=== PATIENT | female | born 1965 | race Caucasian/White ===

== ENCOUNTER 2022-09-02 12:21 | Inpatient (IN) | payer MEDICAID, OTHER ==
[2022-09-02 17:17] LABS: Basophils % (A) 0 %; Eosinophils # (A) 0.1 k/uL (0-0.7); Eosinophils % (A) 2 %; HCT 40.6 % (34.0-46.0); HGB 13.7 gm/dL (11.4-16.0); Lymphocytes # (A) 1.5 k/uL (1.0-4.8); Lymphocytes % (A) 27 %; MCH 31.2 pg (25.0-35.0); MCHC 33.8 g/dL (31.0-37.0); MCV 92.1 fL (80.0-100.0); Mean Platelet Volume 6.7; Monocytes # (A) 0.4 k/uL (0-1.0); Monocytes % (A) 6 %; Neutrophils # (A) 3.4 k/uL (1.3-7.7); Neutrophils % (A) 63 %; Platelet Count 217 k/uL (150-450); RDW 12.5 % (11.5-15.5); WBC 5.5 k/uL (3.8-10.6)
[2022-09-02 17:41] LABS: ALT 19 U/L (4-34); AST 33 U/L (14-36); African American GFR (CKD) >90 (>60 ml/min/1.73 sqM); Albumin 4.1 g/dL (3.5-5.0); Alkaline Phosphatase 38 U/L (38-126); Amylase 91 U/L (30-110); Anion Gap 10 mmol/L; Blood Urea Nitrogen 10 mg/dL (7-17); C Reactive Protein <0.5 mg/dL (<1.0); Calcium 9.1 mg/dL (8.4-10.2); Carbon Dioxide 22 mmol/L (22-30); Chloride 108 mmol/L (98-107); Lipase 116 U/L (23-300); Non-African American GFR(CKD) >90 (>60 ml/min/1.73 sqM); Potassium 4.1 mmol/L (3.5-5.1); Sodium 140 mmol/L (137-145); Total Bilirubin 0.5 mg/dL (0.2-1.3); Total Protein 6.7 g/dL (6.3-8.2)
[2022-09-02 17:54] LABS: Glucose 86 mg/dL (74-99)
[2022-09-02 17:58] LABS: Appearance,Urine Clear (Clear); Bilirubin,Urine Negative (Negative); Blood,Urine Negative (Negative); Color,Urine Yellow; Glucose,Urine (UA) Negative (Negative); Ketones,Urine Negative (Negative); Leukocyte Esterase,Urine Negative (Negative); Nitrite,Urine Negative (Negative); PH, Urine 6.5 (5.0-8.0); Protein,Urine Negative (Negative); Specific Gravity,Urine 1.017 (1.001-1.035); Urobilinogen,Urine <2.0 mg/dL (<2.0)
[2022-09-02 18:09] LABS: Amphetamine Screen,Urine Not Detected (NotDetected); Barbiturate Screen,Urine Not Detected (NotDetected); Benzodiazepines Screen,Urine Detected (NotDetected); Cocaine Screen,Urine Not Detected (NotDetected); Methadone Screen, Urine Not Detected (NotDetected); Opiate Screen,Urine Not Detected (NotDetected); Oxycodone Screen, Urine Not Detected (NotDetected); Phencyclidine Screen,Urine Not Detected (NotDetected); Tricyclic Antidepressant,Urine Not Detected (NotDetected); Urn Cannabinoid Scrn Detected (NotDetected)
[2022-09-02 19:13] LABS: T4, Free (Free Thyroxine) 1.29 ng/dL (0.78-2.19)
[2022-09-02] MEDS ORDERED: diphenhydrAMINE 50 MG/ML 1 ML VIAL IM PRN (22:12)
[2022-09-02] MEDS ORDERED: LORazepam 2 MG/ML INJ IM PRN ×2 (22:14→23:36)
--- NOTE | 2022-09-02 22:42 | ED ---
General Adult HPI - General Chief complaint: Psychiatric Symptoms Stated complaint: Fever, Mental Health Time Seen by Provider: 09/02/22 15:03 Source: patient, RN notes reviewed Mode of arrival: ambulatory Limitations: no limitations - History of Present Illness Initial comments: 57-year-old female presents to the emergency department with chief complaint of Zoloft withdrawal. She states that she was on Zoloft for around 2 months and abruptly stopped it 2 weeks ago because she felt that it was causing her to be forgetful. Patient reports that she has been more agitated recently. She reports frequent outbursts that she has not experienced before. She also reports that she has been sleeping only 1-1/2-3 hours a night. She states that when she is feeling this way she has to take a Xanax which improves her symptoms. Denies chest pain, shortness of breath, urinary frequency, dysuria. Denies SI, HI, or hallucinations. States that she was hospitalized in the past for her mental health. - Related Data Home Medications Medication Instructions Recorded Confirmed ALPRAZolam [Xanax] 1 mg PO TID PRN 09/02/22 09/02/22 Ascorbic Acid [Vitamin C] 1,000 mg PO DAILY 09/02/22 09/02/22 Biotin [Pcgc-Qukt-Rbeyv] 10,000 mcg PO DAILY 09/02/22 09/02/22 Calcium Carbonate [Calcium] 600 mg PO DAILY 09/02/22 09/02/22 Latanoprost Ophth [Xalatan 0.005%] 1 drop BOTH EYES HS 09/02/22 09/02/22 Loratadine [Claritin] 10 mg PO DAILY 09/02/22 09/02/22 Multivitamins, Thera [Multivitamin 1 tab PO DAILY 09/02/22 09/02/22 (formulary)] Omeprazole [PriLOSEC] 20 mg PO AC-BRKFST 09/02/22 09/02/22 Allergies Allergy/AdvReac Type Severity Reaction Status Date / Time quetiapine [From Seroquel] Allergy Hallucinati Verified 09/02/22 17:32 ons sulfamethoxazole Allergy Rash/Hives Verified 09/02/22 17:32 [From Bactrim] trimethoprim [From Bactrim] Allergy Rash/Hives Verified 09/02/22 17:32 Review of Systems ROS Statement: Those systems with pertinent positive or pertinent negative responses have been documented in the HPI. ROS Other: All systems not noted in ROS Statement are negative. Past Medical History Past Medical History: No Reported History History of Any Multi-Drug Resistant Organisms: None Reported Past Surgical History: No Surgical Hx Reported Past Psychological History: PTSD Smoking Status: Vaper Past Alcohol Use History: Occasional Past Drug Use History: Marijuana, Prescription Drug Abuse General Exam Limitations: no limitations General appearance: alert, in no apparent distress, anxious Head exam: Present: atraumatic, normocephalic, normal inspection Eye exam: Present: normal appearance, PERRL, EOMI. Absent: scleral icterus, conjunctival injection, periorbital swelling ENT exam: Present: normal exam, mucous membranes moist Neck exam: Present: normal inspection, full ROM. Absent: tenderness, meningismus, lymphadenopathy Respiratory exam: Present: normal lung sounds bilaterally. Absent: respiratory distress, wheezes, rales, rhonchi, stridor Cardiovascular Exam: Present: regular rate, normal rhythm, normal heart sounds. Absent: systolic murmur, diastolic murmur, rubs, gallop, clicks GI/Abdominal exam: Present: soft, normal bowel sounds. Absent: distended, tenderness, guarding, rebound, rigid Extremities exam: Present: normal inspection, full ROM, normal capillary refill. Absent: tenderness, pedal edema, joint swelling, calf tenderness Back exam: Present: normal inspection Neurological exam: Present: alert, oriented X3, CN II-XII intact Psychiatric exam: Present: agitated, anxious, manic Skin exam: Present: warm, dry, intact, normal color. Absent: rash Course Vital Signs 09/02/22 09/02/22 09/02/22 12:23 15:42 18:43 Temperature 97.9 F 98.4 F 97.9 F Pulse Rate 98 Respiratory 20 Rate Blood Pressure 127/80 O2 Sat by Pulse 99 Oximetry 09/02/22 09/02/22 19:31 23:27 Temperature 97.6 F 98.1 F Pulse Rate 71 76 Respiratory 20 16 Rate Blood Pressure 123/64 136/68 O2 Sat by Pulse 98 99 Oximetry Medical Decision Making - Medical Decision Making Was pt. sent in by a medical professional or institution (, PA, GUARD LIEUTENANT, urgent care, hospital, or senior care...) When possible be specific @ -[No] Did you speak to anyone other than the patient for history (EMS, parent, family, police, friend...)? What history was obtained from this source @ -[No] Did you review nursing and triage notes (agree or disagree)? Why? @ -[I reviewed and agree with nursing and triage notes] Were old charts reviewed (outside hosp., previous admission, EMS record, old EKG, old radiological studies, urgent care reports/EKG's, senior care records)? Report findings @ -[No old charts were reviewed] Differential Diagnosis (chest pain, altered mental status, abdominal pain women, abdominal pain men, vaginal bleeding, weakness, fever, dyspnea, syncope, headache, dizziness, GI bleed, back pain, seizure, CVA, palpatations, mental health, musculoskeletal)? @ -[Differential Mental Health Depression, anxiety, bipolar, psychosis, schizophrenia, borderline personality, situational depression, adjustment disorder, behavioral disorder, brain tumor, malingering, substance abuse, encephalopathy, medication reaction, dementia, hypothyroidism, degenerative neurologic disorder, lupus.... This is not meant to be all-inclusive list] EKG interpreted by me (3pts min.). @ -[none] X-rays interpreted by me (1pt min.). @ -[None done] CT interpreted by me (1pt min.). @ -[None done] U/S interpreted by me (1pt. min.). @ -[None done] What testing was considered but not performed or refused? (CT, X-rays, U/S, labs)? Why? @ -[None] What meds were considered but not given or refused? Why? @ -[None] Did you discuss the management of the patient with other professionals (professionals i.e. , PA, GUARD LIEUTENANT, lab, RT, psych nurse, social sciences chair, crystal finisher, teacher, public health service officer, shoe caser)? Give summary @ -[No] Was smoking cessation discussed for >3mins.? @ -[No] Was critical care preformed (if so, how long)? @ -[No] Were there social determinants of health that impacted care today? How? (Homelessness, low income, unemployed, alcoholism, drug addiction, transportation, low edu. Level, literacy, decrease access to med. care, shelter, rehab)? @ -[No] Was there de-escalation of care discussed even if they declined (Discuss DNR or withdrawal of care, Hospice)? DNR status @ -[No] What co-morbidities impacted this encounter? (DM, HTN, Smoking, COPD, CAD, Cancer, CVA, ARF, Chemo, Hep., AIDS, mental health diagnosis, sleep apnea, morbid obesity)? @ -[None] Was patient admitted / discharged? Hospital course, mention meds given and route, prescriptions, significant lab abnormalities, going to OR and other pertinent info. @ -[Psych admit. Patient presented to the emergency department for increased agitation, hyperactivity, insomnia. Patient denies SI, HI. Patient has been hospitalized for mental health in the past. Laboratory studies obtained including CBC, CMP, UA which were within normal limits. Drug Screen positive for marijuana and benzos. Patient states that she takes Xanax. Patient is hyperactive and hyperverbal and easily becomes agitated. Patient was medically cleared for evaluation by EPS. EPS recommended inpatient psychiatric evaluation and treatment. Patient was petitioned by EPS as evidently she may be a danger to herself at home. ] Undiagnosed new problem with uncertain prognosis? @ -[No] Drug Therapy requiring intensive monitoring for toxicity (Heparin, Nitro, Insulin, Cardizem)? @ -[No] Were any procedures done? @ -[No] Diagnosis/symptom? @ -[Anxiety] Acute, or Chronic, or Acute on Chronic? @ -[acute] Uncomplicated (without systemic symptoms) or Complicated (systemic symptoms)? @ -[Uncomplicated] Side effects of treatment? @ -[No] Exacerbation, Progression, or Severe Exacerbation? @ -[No] Poses a threat to life or bodily function? How? (Chest pain, USA, GA, pneumonia, PE, COPD, DKA, ARF, appy, cholecystitis, CVA, Diverticulitis, Homicidal, Suicidal, threat to staff... and all critical care pts) @ -[No] - Lab Data Result diagrams: 09/02/22 16:58 09/02/22 16:58 Lab Results 09/02/22 09/02/22 09/02/22 Range/Units 15:50 15:58 16:58 WBC 5.5 (3.8-10.6) k/uL RBC 4.40 (3.80-5.40) m/uL Hgb 13.7 (11.4-16.0) gm/dL Hct 40.6 (34.0-46.0) % MCV 92.1 (80.0-100.0) fL MCH 31.2 (25.0-35.0) pg MCHC 33.8 (31.0-37.0) g/dL RDW 12.5 (11.5-15.5) % Plt Count 217 (150-450) k/uL MPV 6.7 Neutrophils % 63 % Lymphocytes % 27 % Monocytes % 6 % Eosinophils % 2 % Basophils % 0 % Neutrophils # 3.4 (1.3-7.7) k/uL Lymphocytes # 1.5 (1.0-4.8) k/uL Monocytes # 0.4 (0-1.0) k/uL Eosinophils # 0.1 (0-0.7) k/uL Basophils # 0.0 (0-0.2) k/uL Sodium (137-145) mmol/L Potassium (3.5-5.1) mmol/L Chloride (98-107) mmol/L Carbon Dioxide (22-30) mmol/L Anion Gap mmol/L BUN (7-17) mg/dL Creatinine (0.52-1.04) mg/dL Est GFR (CKD-EPI)AfAm (>60 ml/min/1.73 sqM) Est GFR (CKD-EPI)NonAf (>60 ml/min/1.73 sqM) Glucose (74-99) mg/dL Estimated Ave Glu mg/dL mg/dL Hemoglobin A1c (<=6.0) % Calcium (8.4-10.2) mg/dL Total Bilirubin (0.2-1.3) mg/dL AST (14-36) U/L ALT (4-34) U/L Alkaline Phosphatase (38-126) U/L C-Reactive Protein (<1.0) mg/dL Total Protein (6.3-8.2) g/dL Albumin (3.5-5.0) g/dL Triglycerides (0.00-149.00) mg/dL Cholesterol (0.00-200.00) mg/dL LDL Cholesterol, Calc (0.0-131.0) mg/dL VLDL Cholesterol, Calc (5.00-40.00) mg/dL HDL Cholesterol (40.00-60.00) mg/dL Cholesterol/HDL Ratio Ratio Amylase (30-110) U/L Lipase (23-300) U/L TSH (0.465-4.680) mIU/L Free T4 (0.78-2.19) ng/dL Urine Color Yellow Urine Appearance Clear (Clear) Urine pH 6.5 (5.0-8.0) Ur Specific [place] 1.017 (1.001-1.035) Urine Protein Negative (Negative) Urine Glucose (UA) Negative (Negative) Urine Ketones Negative (Negative) Urine Blood Negative (Negative) Urine Nitrite Negative (Negative) Urine Bilirubin Negative (Negative) Urine Urobilinogen <2.0 (<2.0) mg/dL Ur Leukocyte Esterase Negative (Negative) Urine Opiates Screen Not Detected (NotDetected) Ur Oxycodone Screen Not Detected (NotDetected) Urine Methadone Screen Not Detected (NotDetected) Ur Propoxyphene Screen Not Detected (NotDetected) Ur Barbiturates Screen Not Detected (NotDetected) U Tricyclic Antidepress Not Detected (NotDetected) Ur Phencyclidine Scrn Not Detected (NotDetected) Ur Amphetamines Screen Not Detected (NotDetected) U Methamphetamines Scrn Not Detected (NotDetected) U Benzodiazepines Scrn Detected H (NotDetected) Urine Cocaine Screen Not Detected (NotDetected) U Marijuana (THC) Screen Detected H (NotDetected) Coronavirus (PCR) (Not Detectd) 09/02/22 09/02/22 09/02/22 Range/Units 16:58 16:58 16:58 WBC (3.8-10.6) k/uL RBC (3.80-5.40) m/uL Hgb (11.4-16.0) gm/dL Hct (34.0-46.0) % MCV (80.0-100.0) fL MCH (25.0-35.0) pg MCHC (31.0-37.0) g/dL RDW (11.5-15.5) % Plt Count (150-450) k/uL MPV Neutrophils % % Lymphocytes % % Monocytes % % Eosinophils % % Basophils % % Neutrophils # (1.3-7.7) k/uL Lymphocytes # (1.0-4.8) k/uL Monocytes # (0-1.0) k/uL Eosinophils # (0-0.7) k/uL Basophils # (0-0.2) k/uL Sodium 140 (137-145) mmol/L Potassium 4.1 (3.5-5.1) mmol/L Chloride 108 H (98-107) mmol/L Carbon Dioxide 22 (22-30) mmol/L Anion Gap 10 mmol/L BUN 10 (7-17) mg/dL Creatinine 0.71 (0.52-1.04) mg/dL Est GFR (CKD-EPI)AfAm >90 (>60 ml/min/1.73 sqM) Est GFR (CKD-EPI)NonAf >90 (>60 ml/min/1.73 sqM) Glucose 86 (74-99) mg/dL Estimated Ave Glu mg/dL 105 mg/dL Hemoglobin A1c 5.3 (<=6.0) % Calcium 9.1 (8.4-10.2) mg/dL Total Bilirubin 0.5 (0.2-1.3) mg/dL AST 33 (14-36) U/L ALT 19 (4-34) U/L Alkaline Phosphatase 38 (38-126) U/L C-Reactive Protein <0.5 (<1.0) mg/dL Total Protein 6.7 (6.3-8.2) g/dL Albumin 4.1 (3.5-5.0) g/dL Triglycerides 113.00 (0.00-149.00) mg/dL Cholesterol 183.00 (0.00-200.00) mg/dL LDL Cholesterol, Calc 111.3 (0.0-131.0) mg/dL VLDL Cholesterol, Calc 22.60 (5.00-40.00) mg/dL HDL Cholesterol 49.10 (40.00-60.00) mg/dL Cholesterol/HDL Ratio 3.73 Ratio Amylase 91 (30-110) U/L Lipase 116 (23-300) U/L TSH 0.327 L (0.465-4.680) mIU/L Free T4 1.29 (0.78-2.19) ng/dL Urine Color Urine Appearance (Clear) Urine pH (5.0-8.0) Ur Specific [place] (1.001-1.035) Urine Protein (Negative) Urine Glucose (UA) (Negative) Urine Ketones (Negative) Urine Blood (Negative) Urine Nitrite (Negative) Urine Bilirubin (Negative) Urine Urobilinogen (<2.0) mg/dL Ur Leukocyte Esterase (Negative) Urine Opiates Screen (NotDetected) Ur Oxycodone Screen (NotDetected) Urine Methadone Screen (NotDetected) Ur Propoxyphene Screen (NotDetected) Ur Barbiturates Screen (NotDetected) U Tricyclic Antidepress (NotDetected) Ur Phencyclidine Scrn (NotDetected) Ur Amphetamines Screen (NotDetected) U Methamphetamines Scrn (NotDetected) U Benzodiazepines Scrn (NotDetected) Urine Cocaine Screen (NotDetected) U Marijuana (THC) Screen (NotDetected) Coronavirus (PCR) (Not Detectd) 09/02/22 Range/Units 22:40 WBC (3.8-10.6) k/uL RBC (3.80-5.40) m/uL Hgb (11.4-16.0) gm/dL Hct (34.0-46.0) % MCV (80.0-100.0) fL MCH (25.0-35.0) pg MCHC (31.0-37.0) g/dL RDW (11.5-15.5) % Plt Count (150-450) k/uL MPV Neutrophils % % Lymphocytes % % Monocytes % % Eosinophils % % Basophils % % Neutrophils # (1.3-7.7) k/uL Lymphocytes # (1.0-4.8) k/uL Monocytes # (0-1.0) k/uL Eosinophils # (0-0.7) k/uL Basophils # (0-0.2) k/uL Sodium (137-145) mmol/L Potassium (3.5-5.1) mmol/L Chloride (98-107) mmol/L Carbon Dioxide (22-30) mmol/L Anion Gap mmol/L BUN (7-17) mg/dL Creatinine (0.52-1.04) mg/dL Est GFR (CKD-EPI)AfAm (>60 ml/min/1.73 sqM) Est GFR (CKD-EPI)NonAf (>60 ml/min/1.73 sqM) Glucose (74-99) mg/dL Estimated Ave Glu mg/dL mg/dL Hemoglobin A1c (<=6.0) % Calcium (8.4-10.2) mg/dL Total Bilirubin (0.2-1.3) mg/dL AST (14-36) U/L ALT (4-34) U/L Alkaline Phosphatase (38-126) U/L C-Reactive Protein (<1.0) mg/dL Total Protein (6.3-8.2) g/dL Albumin (3.5-5.0) g/dL Triglycerides (0.00-149.00) mg/dL Cholesterol (0.00-200.00) mg/dL LDL Cholesterol, Calc (0.0-131.0) mg/dL VLDL Cholesterol, Calc (5.00-40.00) mg/dL HDL Cholesterol (40.00-60.00) mg/dL Cholesterol/HDL Ratio Ratio Amylase (30-110) U/L Lipase (23-300) U/L TSH (0.465-4.680) mIU/L Free T4 (0.78-2.19) ng/dL Urine Color Urine Appearance (Clear) Urine pH (5.0-8.0) Ur Specific [place] (1.001-1.035) Urine Protein (Negative) Urine Glucose (UA) (Negative) Urine Ketones (Negative) Urine Blood (Negative) Urine Nitrite (Negative) Urine Bilirubin (Negative) Urine Urobilinogen (<2.0) mg/dL Ur Leukocyte Esterase (Negative) Urine Opiates Screen (NotDetected) Ur Oxycodone Screen (NotDetected) Urine Methadone Screen (NotDetected) Ur Propoxyphene Screen (NotDetected) Ur Barbiturates Screen (NotDetected) U Tricyclic Antidepress (NotDetected) Ur Phencyclidine Scrn (NotDetected) Ur Amphetamines Screen (NotDetected) U Methamphetamines Scrn (NotDetected) U Benzodiazepines Scrn (NotDetected) Urine Cocaine Screen (NotDetected) U Marijuana (THC) Screen (NotDetected) Coronavirus (PCR) Not Detected (Not Detectd) Disposition Clinical Impression: Acute anxiety Disposition: ADMITTED IP TO THIS HOSP Condition: Stable Is patient prescribed a controlled substance at d/c from ED?: No
[2022-09-02] MEDS ORDERED: HALOPERIDOL LACTATE 5 MG/ML 1 ML VIAL IM PRN (23:36)
[2022-09-02] MEDS ORDERED: haloperidoL 5 MG TAB PO PRN (23:36)
[2022-09-02] MEDS ORDERED: ACETAMINOPHEN TAB 325 MG TAB PO PRN (23:36)
[2022-09-02] MEDS ORDERED: MAGNESIUM HYDROXIDE 2,400 MG/30 ML CUP PO PRN (23:36)
[2022-09-02] MEDS: LORazepam 1 MG TAB PO PRN (23:58)
[2022-09-02] MEDS: NICOTINE 14MG/24HR PATCH TRANSDERM SCH (23:58)
[2022-09-03] MEDS: PANTOPRAZOLE 40 MG TABLET PO SCH (06:50)
[2022-09-03] MEDS ORDERED: NON FORMULARY DRUG (Biotin [Hair-Skin-Nails] 10,000 MCG Tab.Chew) PO SCH (09:00)
[2022-09-03] MEDS: LORATADINE 10 MG TAB PO SCH (09:35)
[2022-09-03] MEDS: CALCIUM CARBONATE 500 MG CHEWABLE PO SCH (09:35)
[2022-09-03] MEDS: ASCORBIC ACID 500 MG TAB PO SCH (09:35)
[2022-09-03] MEDS: MULTIVITAMINS, THERA 1 EACH TAB PO SCH (09:35)
[2022-09-03] MEDS: NICOTINE 14MG/24HR PATCH TRANSDERM SCH (09:36)
[2022-09-03] MEDS: LORazepam 1 MG TAB PO PRN ×2 (09:37→17:26)
[2022-09-03] MEDS: MAG HYDROX/AL HYDROX/SIMETH 30 ML CUP PO PRN ×2 (09:38→18:40)
[2022-09-03 12:01] VITALS: BMI 19.1
[2022-09-03] MEDS: NICOTINE GUM (POLACRILEX) 2 MG GUM BUCCAL PRN ×3 (13:30→21:19)
[2022-09-03 17:43] LABS: Chol/HDL Ratio 3.73 Ratio; LDL Cholesterol,Calculated 111.3 mg/dL (0.0-131.0)
--- NOTE | 2022-09-03 18:17 | P.HP ---
Psychiatric H&P - . H&P Date: 09/03/22 History & Physical: Allergies Allergy/AdvReac Type Severity Reaction Status Date / Time quetiapine [From Seroquel] Allergy Hallucinati Verified 09/02/22 17:32 ons sulfamethoxazole Allergy Rash/Hives Verified 09/02/22 17:32 [From Bactrim] trimethoprim [From Bactrim] Allergy Rash/Hives Verified 09/02/22 17:32 Vital Signs Temp 97.5 F L 09/02/22 23:59 Pulse 91 09/03/22 09:42 Resp 20 09/02/22 23:59 BP 120/66 09/03/22 09:42 Pulse Ox 99 09/02/22 23:27 FiO2 Intake & Output 09/02/22 09/03/22 09/03/22 18:59 06:59 18:59 Weight 48.534 kg 47.5 kg 47.5 kg Laboratory Last Values WBC 5.5 k/uL (3.8-10.6) 09/02/22 16:58 RBC 4.40 m/uL (3.80-5.40) 09/02/22 16:58 Hgb 13.7 gm/dL (11.4-16.0) 09/02/22 16:58 Hct 40.6 % (34.0-46.0) 09/02/22 16:58 MCV 92.1 fL (80.0-100.0) 09/02/22 16:58 MCH 31.2 pg (25.0-35.0) 09/02/22 16:58 MCHC 33.8 g/dL (31.0-37.0) 09/02/22 16:58 RDW 12.5 % (11.5-15.5) 09/02/22 16:58 Plt Count 217 k/uL (150-450) 09/02/22 16:58 MPV 6.7 09/02/22 16:58 Neutrophils % 63 % 09/02/22 16:58 Lymphocytes % 27 % 09/02/22 16:58 Monocytes % 6 % 09/02/22 16:58 Eosinophils % 2 % 09/02/22 16:58 Basophils % 0 % 09/02/22 16:58 Neutrophils # 3.4 k/uL (1.3-7.7) 09/02/22 16:58 Lymphocytes # 1.5 k/uL (1.0-4.8) 09/02/22 16:58 Monocytes # 0.4 k/uL (0-1.0) 09/02/22 16:58 Eosinophils # 0.1 k/uL (0-0.7) 09/02/22 16:58 Basophils # 0.0 k/uL (0-0.2) 09/02/22 16:58 Sodium 140 mmol/L (137-145) 09/02/22 16:58 Potassium 4.1 mmol/L (3.5-5.1) 09/02/22 16:58 Chloride 108 mmol/L (98-107) H 09/02/22 16:58 Carbon Dioxide 22 mmol/L (22-30) 09/02/22 16:58 Anion Gap 10 mmol/L 09/02/22 16:58 BUN 10 mg/dL (7-17) 09/02/22 16:58 Creatinine 0.71 mg/dL (0.52-1.04) 09/02/22 16:58 Est GFR (CKD-EPI)AfAm >90 (>60 ml/min/1.73 sqM) 09/02/22 16:58 Est GFR (CKD-EPI)NonAf >90 (>60 ml/min/1.73 sqM) 09/02/22 16:58 Glucose 86 mg/dL (74-99) 09/02/22 16:[address] Glu mg/dL 105 mg/dL 09/02/22 16:58 Hemoglobin A1c 5.3 % (<=6.0) 09/02/22 16:58 Calcium 9.1 mg/dL (8.4-10.2) 09/02/22 16:58 Total Bilirubin 0.5 mg/dL (0.2-1.3) 09/02/22 16:58 AST 33 U/L (14-36) 09/02/22 16:58 ALT 19 U/L (4-34) 09/02/22 16:58 Alkaline Phosphatase 38 U/L (38-126) 09/02/22 16:58 C-Reactive Protein <0.5 mg/dL (<1.0) 09/02/22 16:58 Total Protein 6.7 g/dL (6.3-8.2) 09/02/22 16:58 Albumin 4.1 g/dL (3.5-5.0) 09/02/22 16:58 Amylase 91 U/L (30-110) 09/02/22 16:58 Lipase 116 U/L (23-300) 09/02/22 16:58 TSH 0.327 mIU/L (0.465-4.680) L 09/02/22 16:58 Free T4 1.29 ng/dL (0.78-2.19) 09/02/22 16:58 Urine Color Yellow 09/02/22 15:58 Urine Appearance Clear (Clear) 09/02/22 15:58 Urine pH 6.5 (5.0-8.0) 09/02/22 15:58 Ur Specific [place] 1.017 (1.001-1.035) 09/02/22 15:58 Urine Protein Negative (Negative) 09/02/22 15:58 Urine Glucose (UA) Negative (Negative) 09/02/22 15:58 Urine Ketones Negative (Negative) 09/02/22 15:58 Urine Blood Negative (Negative) 09/02/22 15:58 Urine Nitrite Negative (Negative) 09/02/22 15:58 Urine Bilirubin Negative (Negative) 09/02/22 15:58 Urine Urobilinogen <2.0 mg/dL (<2.0) 09/02/22 15:58 Ur Leukocyte Esterase Negative (Negative) 09/02/22 15:58 Urine Opiates Screen Not Detected (NotDetected) 09/02/22 15:50 Ur Oxycodone Screen Not Detected (NotDetected) 09/02/22 15:50 Urine Methadone Screen Not Detected (NotDetected) 09/02/22 15:50 Ur Propoxyphene Screen Not Detected (NotDetected) 09/02/22 15:50 Ur Barbiturates Screen Not Detected (NotDetected) 09/02/22 15:50 U Tricyclic Antidepress Not Detected (NotDetected) 09/02/22 15:50 Ur Phencyclidine Scrn Not Detected (NotDetected) 09/02/22 15:50 Ur Amphetamines Screen Not Detected (NotDetected) 09/02/22 15:50 U Methamphetamines Scrn Not Detected (NotDetected) 09/02/22 15:50 U Benzodiazepines Scrn Detected (NotDetected) H 09/02/22 15:50 Urine Cocaine Screen Not Detected (NotDetected) 09/02/22 15:50 U Marijuana (THC) Screen Detected (NotDetected) H 09/02/22 15:50 Coronavirus (PCR) Not Detected (Not Detectd) 09/02/22 22:40 09/03/22 13:25 IDENTIFYING DATA: Patient is a 57 yo female, currently lives alone in an apartment, single, 5 kids. HPI: Patient presented to the hospital yesterday and was seen in the ED. patient apparently was hyperverbal, agitated and complainging on "zoloft withdrawal". She was admitted to the [facility] involuntarily and was seen in the hallways and demanded to speak to telegraphic typewriter installer in the office today. she was positive for thc and BZD. she appeared to be rambling, loose associations, hyperverbal bizzare and intrusive during the interview. she states that she was taking zoloft and was not feeling well with it after taking 25 mg. she states that she was having alot of somatic sx and then finally stopped taking it 2 weeks ago and her conditon got worst. she states that she was feeling she had a "brain infection". she was displaying racing thoughts, difficult to redirect. she states that she is not able to keep her house maintained and clean and cant maintain herself care either. she states that her sleep has been poor, appetite is fair. Patient denies any suicidal or homicidal ideations intent or plan. At this time patient denies any auditory or visual hallucinations. she claims that she uses thc regularly and cigarettes aswell. denies any other rec drug use. PAST PSYCHIATRIC HISTORY: Patient states that she has a hx of ptsd, ADHD. [Patient was previously taking zoloft 25mg however has stopped for 2 weeks now.] [Patient claims that she was last psychitrically admitted to the MHU was in 2005.] [Patient denies any psychiatric outpatient follow-up.] [Patient denies any history of suicide attempts in the past.] Past Medical History: No Reported History History of Any Multi-Drug Resistant Organisms: None Reported Past Surgical History: No Surgical Hx Reported Past Psychological History: PTSD Smoking Status: Vaper Past Alcohol Use History: Occasional Past Drug Use History: Marijuana, Prescription Drug Abuse ALLERGIES: as per EMR CHEMICAL DEPENDENCY HISTORY: as per HPI FAMILY PSYCHIATRIC/SUBSTANCE USE HISTORY: states her son has schizoaffective disorder SOCIAL HISTORY: Patient was born and raised in [place], completed high school, did some college. states that she used to work at an [employer] home. she has 5 kids, lives alone in an apartment. single. MENTAL STATUS EXAM: General Appearance: Patient appears to be [thin, older than stated age,] is a lert, [difficult to redirect, intrusive]. Patient appears to have fair] hygiene and grooming. Behavior: Patient is seated without any agitated behavior. intrusive and labile at times. Speech: Patient's speech is rapid and hyperverbal. Mood/Affect: Patient reports their mood is "fine", affect is incongruent and labile Suicidality/Homicidality: Patient denies having any homicidal ideation intent or plan. [Denies any suicidal ideations intent or plan] Perceptions: Patient denies any visual hallucinations [and denies any auditory hallucinations] Though content/process: [There is no evidence of any delusional thought content, tangential, rambling, loose associations.] Memory and concentration: AOX3, grossly intact for the purposes of this session Judgment and insight: [poor STRENGTHS/WEAKNESSES: strength is that patient is [resilient]. Weakness is that patient [has poor judgment and is impulsive] INTELLECT: [average] IMPRESSIONS: Mood disorder unspecified hx of PTSD cannabis use disorder nicotine dependence PLAN: -Patient is admitted under [involuntary] status to MHU for stabilization of psychiatric symptoms and safety. Patient has signed [medication consent] and is placed in patient's chart. [A second certification was completed and along with petition will be filed for court.] -Medications : Will start patient on lithobid 450 mg HS for mood stabilziation. Zyprexa 2.5 mg qhs for insomnia/mood stabilization. trazodone 50 mg qhs prn for insomnia -Ativan [and Haldol] PRN for agitation/aggression [-Patient was counselled on substance abuse and desired to cut back on use] -Patient was informed of the risks, benefits and side effects of the medication and patient verbally consented to taking the medications. Patient signed med consent form and was placed in chart. -Internal Medicine consult to perform medical evaluation and physical. -NRT - [nicotine patch] -SW on board for discharge planning. Encourage patient to participate in groups to work on coping skills. [Will await deferral and court date.] 09/03/22 18:15
[2022-09-03] MEDS ORDERED: OLANZapine 2.5 MG TAB PO SCH (21:00)
[2022-09-03] MEDS: LITHIUM CARBONATE ER 450 MG TABLET.ER PO SCH (21:16)
[2022-09-03] MEDS: LATANOPROST 0.005% OPHTH DROPS 2.5 ML BTL BOTH EYES SCH (21:16)
[2022-09-03] MEDS: traZODone HCL 50 MG TAB PO PRN (21:19)
[2022-09-04] MEDS: LORazepam 1 MG TAB PO PRN ×4 (00:03→21:09)
--- NOTE | 2022-09-04 05:21 | P.MDCNMH ---
History of Present Illness H&P Date: 09/04/22 Chief Complaint: medical evaluation 57 year old female with no significant past medical history patient coming in for evaluation of symptoms , she believes related to zoloft withdrawal. she claims she took it for a while, then stopped it, and her doc recently restarted it 2 months ago , and she feels it causing her blood pressure to run low. it not clear to me if she stopped it for 2 days or for 2 weeks , and she is not clear about the withdrawal symptoms, but claims she is having shakes. she denies any suicidal ideation , denies any other medical concerns admits to vaping nicotine , occasional marijunana denies alcohol review of systems Pertinent positives as noted in HPI. All other systems were reviewed and are negative Constitutional: No acute distress, Eyes: Anicteric sclerae, moist conjunctiva, Pupils equal round reactive to light Lungs: Clear to auscultation Clear to percussion Normal respiratory effort, no accessory muscle use Cardiovascular: Heart regular in rate and rhythm, No murmurs, gallops, or rubs No peripheral edema Abdominal: Soft Nontender, no guarding, rebound or rigidity Abdomen moving with respiration Normoactive bowel sounds Extremities: No digital cyanosis No clubbing Pedal pulses intact and symmetrical Radial pulses intact and symmetrical No calf tenderness Psychiatric: Alert and oriented to person, place and time Neuro Muscles Strength 5/5 in all 4 extremities Sensation to light touch grossly present throughout Cranial nerves II-XII grossly intact Past Medical History Past Medical History: No Reported History Additional Past Medical History / Comment(s): glaucoma, gerd, History of Any Multi-Drug Resistant Organisms: None Reported Past Surgical History: No Surgical Hx Reported Past Anesthesia/Blood Transfusion Reactions: No Reported Reaction Past Psychological History: PTSD Smoking Status: Vaper Past Alcohol Use History: Occasional Past Drug Use History: Marijuana, Prescription Drug Abuse Medications and Allergies Home Medications Medication Instructions Recorded Confirmed Type ALPRAZolam [Xanax] 1 mg PO TID PRN 09/02/22 09/02/22 History Ascorbic Acid [Vitamin C] 1,000 mg PO DAILY 09/02/22 09/02/22 History Biotin [Fdfs-Soco-Srtyh] 10,000 mcg PO DAILY 09/02/22 09/02/22 History Calcium Carbonate [Calcium] 600 mg PO DAILY 09/02/22 09/02/22 History Latanoprost Ophth [Xalatan 0.005%] 1 drop BOTH EYES HS 09/02/22 09/02/22 History Loratadine [Claritin] 10 mg PO DAILY 09/02/22 09/02/22 History Multivitamins, Thera [Multivitamin 1 tab PO DAILY 09/02/22 09/02/22 History (formulary)] Omeprazole [PriLOSEC] 20 mg PO AC-BRKFST 09/02/22 09/02/22 History Allergies Allergy/AdvReac Type Severity Reaction Status Date / Time quetiapine [From Seroquel] Allergy Hallucinati Verified 09/02/22 17:32 ons sulfamethoxazole Allergy Rash/Hives Verified 09/02/22 17:32 [From Bactrim] trimethoprim [From Bactrim] Allergy Rash/Hives Verified 09/02/22 17:32 Physical Exam Vitals: Vital Signs Temp Pulse Pulse Resp BP Pulse Ox 09/04/22 00:38 97.9 F 88 16 95/53 99 09/03/22 09:42 91 120/66 Intake and Output 09/03/22 09/03/22 09/04/22 14:59 22:59 06:59 Other: Weight 47.5 kg Cranial Nerve Examination - Cranial Nerves Cranial Nerve II- Optic: Intact Cranial Nerve III- Oculomotor: Intact Cranial Nerve IV- Trochlear: Intact Cranial Nerve V- Trigeminal: Intact Cranial Nerve - Abducens: Intact Cranial Nerve VII- Facial: Intact Cranial Nerve VIII- Auditory: Intact Cranial Nerve IX- Glossopharyngeal: Intact Cranial Nerve X- Vagus: Intact Cranial Nerve XI- Accessory: Intact Cranial Nerve XII- Hypoglossal: Intact Results CBC & Chem 7: 09/02/22 16:58 09/02/22 16:58 Assessment and Plan Assessment: psychosis follow up with psychiatry ' borderline blood pressure asymptomatic continue to monitor blood work unremarkable TSH low, but free T4 within normal limit s thank you for this consultation
[2022-09-04] MEDS: PANTOPRAZOLE 40 MG TABLET PO SCH (07:04)
[2022-09-04] MEDS: LORATADINE 10 MG TAB PO SCH (09:06)
[2022-09-04] MEDS: CALCIUM CARBONATE 500 MG CHEWABLE PO SCH (09:06)
[2022-09-04] MEDS: NICOTINE 14MG/24HR PATCH TRANSDERM SCH (09:06)
[2022-09-04] MEDS: MULTIVITAMINS, THERA 1 EACH TAB PO SCH (09:06)
[2022-09-04] MEDS: ASCORBIC ACID 500 MG TAB PO SCH (09:06)
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
[2022-09-04] MEDS: NICOTINE GUM (POLACRILEX) 2 MG GUM BUCCAL PRN (15:00)
[2022-09-04] MEDS: MAG HYDROX/AL HYDROX/SIMETH 30 ML CUP PO PRN (20:05)
[2022-09-04] MEDS: LITHIUM CARBONATE ER 450 MG TABLET.ER PO SCH (20:05)
[2022-09-04] MEDS: OLANZapine 5 MG TAB PO SCH (20:05)
[2022-09-04] MEDS: LATANOPROST 0.005% OPHTH DROPS 2.5 ML BTL BOTH EYES SCH (20:07)
[2022-09-05] MEDS: LORazepam 1 MG TAB PO PRN ×2 (03:40→09:34)
[2022-09-05] MEDS: CALCIUM CARBONATE 500 MG CHEWABLE PO SCH (08:05)
[2022-09-05] MEDS: MULTIVITAMINS, THERA 1 EACH TAB PO SCH (08:06)
[2022-09-05] MEDS: PANTOPRAZOLE 40 MG TABLET PO SCH (08:06)
[2022-09-05] MEDS: NICOTINE 14MG/24HR PATCH TRANSDERM SCH (08:06)
[2022-09-05] MEDS: LORATADINE 10 MG TAB PO SCH (08:06)
[2022-09-05] MEDS: ASCORBIC ACID 500 MG TAB PO SCH (08:06)
--- NOTE | 2022-09-05 11:25 | P.PN ---
Progress Note - Text Progress Note Date: 09/05/22 Interval hx: Patient was seen sitting in on morning group today. She states that she is doing a bit better today overall. She appears to have some improvement in her hygiene and grooming. She continues to be fairly focused on her court and deferral date. We spoke more about the court process. She states that she wants to get back home so she can "go on vacation" with her family. He does appear to be more appropriate in the interaction today with marketing copywriter. Claims that she slept about 6-7 hours last night however did have frequent awakenings throughout the night and found it difficult to maintain sleep. She asked more appropriate questions today, was more directable. Denying any depression or anxiety today. States that she is going to groups and participate as best she can. She is denying any problems with her medications at this time. At this time she is denying any auditory or visual hallucinations, denying any delusions or paranoia at this time. Denying any suicidal or homicidal ideations intent or plan. Mental status examination: General Appearance: Patient appears to be thin, stated age, is alert, or directable and less intrusive today. Patient appears to have fair] hygiene and grooming. Behavior: Patient is seated without any agitated behavior. More directable. Speech: Patient's speech is rapid and hyperverbal. Mood/Affect: Patient reports their mood is "better", affect is congruent Suicidality/Homicidality: Patient denies having any homicidal ideation intent or plan. Denies any suicidal ideations intent or plan Perceptions: Patient denies any visual hallucinations and denies any auditory hallucinations Though content/process: There is no evidence of any delusional thought content, tangential, improving mildly. More more goal oriented. Memory and concentration: AOX3, grossly intact for the purposes of this session Judgment and insight: improving mildly IMPRESSIONS: Mood disorder unspecified hx of PTSD cannabis use disorder nicotine dependence PLAN: -Patient is admitted under involuntary status to [facility] for stabilization of psychiatric symptoms and safety. Patient has signed medication consent and is placed in patient's chart. -Medications : continue lithobid 450 mg HS for mood stabilziation. Zyprexa 5 mg qhs for insomnia/mood stabilization. trazodone 50 mg qhs scheduled and 50 mg prn for insomnia, this can be increased based on patients sleep due to insomnia. -Ativan and Haldol PRN for agitation/aggression -NRT - nicotine patch -SW on board for discharge planning. Encourage patient to participate in groups to work on coping skills. Will await deferral and court date. likely discharge either friday vs friday if patient is improving.
[2022-09-05] MEDS: MAG HYDROX/AL HYDROX/SIMETH 30 ML CUP PO PRN (13:40)
[2022-09-05] MEDS: NICOTINE GUM (POLACRILEX) 2 MG GUM BUCCAL PRN ×2 (13:40→20:52)
[2022-09-05] MEDS: traZODone HCL 50 MG TAB PO SCH (21:43)
[2022-09-05] MEDS: LATANOPROST 0.005% OPHTH DROPS 2.5 ML BTL BOTH EYES SCH (21:43)
[2022-09-05] MEDS: LITHIUM CARBONATE ER 450 MG TABLET.ER PO SCH (21:43)
[2022-09-05] MEDS: OLANZapine 5 MG TAB PO SCH (21:43)
[2022-09-06] MEDS: LORazepam 1 MG TAB PO PRN (03:56)
[2022-09-06] MEDS: PANTOPRAZOLE 40 MG TABLET PO SCH (08:35)
[2022-09-06] MEDS: NICOTINE 14MG/24HR PATCH TRANSDERM SCH (08:35)
[2022-09-06] MEDS: LORATADINE 10 MG TAB PO SCH (08:35)
[2022-09-06] MEDS: CALCIUM CARBONATE 500 MG CHEWABLE PO SCH (08:35)
[2022-09-06] MEDS: MULTIVITAMINS, THERA 1 EACH TAB PO SCH (08:35)
[2022-09-06] MEDS: ASCORBIC ACID 500 MG TAB PO SCH (08:36)
[2022-09-06] MEDS: NICOTINE GUM (POLACRILEX) 2 MG GUM BUCCAL PRN ×2 (10:01→21:06)
--- NOTE | 2022-09-06 12:47 | P.PN ---
Progress Note - Text Progress Note Date: 09/06/22 Interval hx: Patient was isolating in her room. She was quite tearful during today's assessment. She was stating that she was upset with being hospitalized and does not appear to understand the need for hospitalization. However, patient does not become agitated as she is expressing her emotions. She does endorse having difficulty controlling her emotions. She reports tolerating the medication well and denies concerns with the medication. However, patient continues to difficulty with sleeping at night despite being on trazodone. She states that her mood is better since hospitalization but she is feeling "very depressed "because she is in the hospital. She states that she has been in contact with family members and hopes to visit them before returning back to [place]. At this time she is denying any auditory or visual hallucinations, denying any delusions or paranoia at this time. However, she does display labile mood that is consistent with bipolar disorder that needs to be better regulated prior to discharge. Patient continues to require inpatient monitoring due to high risk of further decompensation without stabilization on meds. Denying any suicidal or homicidal ideations intent or plan. Mental status examination: General Appearance: Patient appears to be thin, stated age, is alert, or directable and less intrusive today. Patient appears to have fair hygiene and grooming. Behavior: Patient is seated without any agitated behavior. More directable. Speech: Patient's speech is rapid and hyperverbal. Mood/Affect: Patient reports their mood is "very depressed", affect is labile Suicidality/Homicidality: Patient denies having any homicidal ideation intent or plan. Denies any suicidal ideations intent or plan Perceptions: Patient denies any visual hallucinations and denies any auditory hallucinations Though content/process: There is no evidence of any delusional thought content, tangential, improving mildly. More more goal oriented. Memory and concentration: AOX3, grossly intact for the purposes of this session Judgment and insight: improving mildly IMPRESSIONS: Bipolar disorder unspecified hx of PTSD cannabis use disorder nicotine dependence PLAN: -Patient is admitted under involuntary status to [facility] for stabilization of psychiatric symptoms and safety. Patient has signed medication consent and is placed in patient's chart. -Medications : Increase lithium to 600 mg HS for mood stabilziation. Li level ordered for Friday morning Zyprexa 5 mg qhs for insomnia/mood stabilization. Increase trazodone to 100 mg qhs scheduled and 50 mg prn for insomnia -Ativan and Haldol PRN for agitation/aggression -NRT - nicotine patch -SW on board for discharge planning. Encourage patient to participate in groups to work on coping skills. Will await deferral and court date. likely discharge friday if patient is improving.
[2022-09-06] MEDS: IBUPROFEN 600 MG TAB PO PRN (16:17)
[2022-09-06] MEDS: LITHIUM CARBONATE 300 MG CAP PO SCH (21:00)
[2022-09-06] MEDS: OLANZapine 5 MG TAB PO SCH (21:00)
[2022-09-06] MEDS: traZODone HCL 50 MG TAB PO SCH (21:00)
[2022-09-06] MEDS: LATANOPROST 0.005% OPHTH DROPS 2.5 ML BTL BOTH EYES SCH (21:01)
[2022-09-07] MEDS: PANTOPRAZOLE 40 MG TABLET PO SCH (07:40)
[2022-09-07] MEDS: CALCIUM CARBONATE 500 MG CHEWABLE PO SCH (09:01)
[2022-09-07] MEDS: ASCORBIC ACID 500 MG TAB PO SCH (09:01)
[2022-09-07] MEDS: LORATADINE 10 MG TAB PO SCH (09:02)
[2022-09-07] MEDS: MULTIVITAMINS, THERA 1 EACH TAB PO SCH (09:03)
[2022-09-07] MEDS: MAG HYDROX/AL HYDROX/SIMETH 30 ML CUP PO PRN ×2 (09:03→20:47)
[2022-09-07] MEDS: NICOTINE GUM (POLACRILEX) 2 MG GUM BUCCAL PRN ×2 (09:39→17:03)
--- NOTE | 2022-09-07 13:12 | P.PN ---
Progress Note - Text Progress Note Date: 09/07/22 Interval hx: Patient was seen bedside this AM. She says that she had difficulty sleeping last night because of staff checking in and the flower light interrupting her sleep. She says that her mood is "great ". She reports tolerating the medication well and denies concerns with the medication. Patient describes numerous losses she has had in her life and says she might visit the place where her son . She is also concerned about her daughter who she says is addicted to heroin and crack. She appears to have increased energy today and denies other concerns. She says that she participated in groups this morning. At this time she is denying any auditory or visual hallucinations, denying any delusions or paranoia at this time. However, she does display labile mood that is consistent with bipolar disorder that needs to be better regulated prior to discharge. Patient continues to require inpatient monitoring due to high risk of further decompensation without stabilization on meds. Denying any suicidal or homicidal ideations intent or plan. Mental status examination: General Appearance: Patient appears to be thin, stated age, is alert, or directable and less intrusive today. Patient appears to have fair hygiene and grooming. Behavior: Patient is seated without any agitated behavior. More restless Speech: Patient's speech is rapid and hyperverbal. Mood/Affect: Patient reports their mood is "great", affect is labile Suicidality/Homicidality: Patient denies having any homicidal ideation intent or plan. Denies any suicidal ideations intent or plan Perceptions: Patient denies any visual hallucinations and denies any auditory hallucinations Though content/process: There is no evidence of any delusional thought content, tangential, improving mildly. More more goal oriented. Memory and concentration: AOX3, grossly intact for the purposes of this session Judgment and insight: improving mildly IMPRESSIONS: Bipolar disorder unspecified Uncomplicated bereavement hx of PTSD cannabis use disorder nicotine dependence PLAN: -Patient is admitted under involuntary status to [facility] for stabilization of psychiatric symptoms and safety. Patient has signed medication consent and is placed in patient's chart. -Medications : Continue lithium 600 mg HS for mood stabilziation. Li level ordered for Friday morning Increase Zyprexa to 7.5 mg qhs for insomnia/mood stabilization. Continue trazodone 100 mg qhs scheduled and 50 mg prn for insomnia -Ativan and Haldol PRN for agitation/aggression -NRT - nicotine patch -SW on board for discharge planning. Encourage patient to participate in groups to work on coping skills. Will await deferral and court date. likely discharge friday if patient is improving.
[2022-09-07] MEDS: IBUPROFEN 600 MG TAB PO PRN (20:48)
[2022-09-07] MEDS ORDERED: OLANZapine 7.5 MG TAB PO SCH (21:00)
[2022-09-07] MEDS: LITHIUM CARBONATE 300 MG CAP PO SCH (21:54)
[2022-09-07] MEDS: traZODone HCL 50 MG TAB PO SCH (21:54)
[2022-09-07] MEDS: LATANOPROST 0.005% OPHTH DROPS 2.5 ML BTL BOTH EYES SCH (21:55)
[2022-09-07] MEDS: traZODone HCL 50 MG TAB PO PRN (21:55)
[2022-09-08] MEDS: LORazepam 1 MG TAB PO PRN (00:14)
[2022-09-08] MEDS: PANTOPRAZOLE 40 MG TABLET PO SCH (08:10)
[2022-09-08] MEDS: MULTIVITAMINS, THERA 1 EACH TAB PO SCH (08:11)
[2022-09-08] MEDS: ASCORBIC ACID 500 MG TAB PO SCH (08:11)
[2022-09-08] MEDS: LORATADINE 10 MG TAB PO SCH (08:11)
[2022-09-08] MEDS: CALCIUM CARBONATE 500 MG CHEWABLE PO SCH (08:11)
[2022-09-08] MEDS: NICOTINE GUM (POLACRILEX) 2 MG GUM BUCCAL PRN ×3 (09:07→22:00)
--- NOTE | 2022-09-08 13:18 | P.PN ---
Progress Note - Text Progress Note Date: 09/08/22 Interval hx: Patient was seen bedside this AM. She says that she had difficulty sleeping last night and was agreeable with increase in Zyprexa. She says that her mood is "good". She reports tolerating the medication well and denies concerns with the medication. Patient appears to have increased energy today and was more bright. Patient is hoping for discharge soon. She reports eating well and denies other concerns. At this time she is denying any auditory or visual hallucinations, denying any delusions or paranoia at this time. However, she does display elevated mood that is consistent with bipolar disorder that needs to be better regulated prior to discharge. Patient continues to require inpatient monitoring due to high risk of further decompensation without stabilization on meds. Denying any suicidal or homicidal ideations intent or plan. Mental status examination: General Appearance: Patient appears to be thin, stated age, is alert, or directable and less intrusive today. Patient appears to have fair hygiene and grooming. Behavior: Patient is seated without any agitated behavior. More restless Speech: Patient's speech is rapid and hyperverbal. Mood/Affect: Patient reports their mood is "good", affect is increased in range Suicidality/Homicidality: Patient denies having any homicidal ideation intent or plan. Denies any suicidal ideations intent or plan Perceptions: Patient denies any visual hallucinations and denies any auditory hallucinations Though content/process: There is no evidence of any delusional thought content, less tangential. More more goal oriented. Memory and concentration: AOX3, grossly intact for the purposes of this session Judgment and insight: improving mildly Vital Signs Temp 98.1 F 09/08/22 00:15 Pulse 81 09/08/22 00:15 Resp 17 09/08/22 00:15 BP 126/65 09/08/22 00:15 Pulse Ox 96 09/08/22 00:15 FiO2 IMPRESSIONS: Bipolar disorder unspecified Uncomplicated bereavement hx of PTSD cannabis use disorder nicotine dependence PLAN: -Patient is admitted under involuntary status to [facility] for stabilization of psychiatric symptoms and safety. Patient has signed medication consent and is placed in patient's chart. -Medications : Continue lithium 600 mg HS for mood stabilziation. Li level 0.7 on 09/08 Increase Zyprexa to 10 mg qhs for insomnia/mood stabilization. Continue trazodone 100 mg qhs for insomnia and stop 50 mg prn due to antidepressant effects at higher doses -Ativan and Haldol PRN for agitation/aggression -NRT - nicotine patch -ANNAMARIE on board for discharge planning. Encourage patient to participate in groups to work on coping skills. Will await deferral and court date. likely discharge friday if patient is improving.
[2022-09-08] MEDS: IBUPROFEN 600 MG TAB PO PRN (14:48)
[2022-09-08] MEDS: OLANZapine 10 MG TAB PO SCH (21:51)
[2022-09-08] MEDS: LITHIUM CARBONATE 300 MG CAP PO SCH ×2 (21:52→21:55)
[2022-09-08] MEDS: LATANOPROST 0.005% OPHTH DROPS 2.5 ML BTL BOTH EYES SCH (21:52)
[2022-09-08] MEDS: traZODone HCL 50 MG TAB PO SCH (21:52)
[2022-09-09 06:20] VITALS: BP 101/56; TEMP 97.9
[2022-09-09] MEDS: PANTOPRAZOLE 40 MG TABLET PO SCH (09:04)
[2022-09-09] MEDS: MULTIVITAMINS, THERA 1 EACH TAB PO SCH (09:04)
[2022-09-09] MEDS: ASCORBIC ACID 500 MG TAB PO SCH (09:04)
[2022-09-09] MEDS: LORazepam 1 MG TAB PO PRN (09:04)
[2022-09-09] MEDS: LORATADINE 10 MG TAB PO SCH (09:04)
[2022-09-09] MEDS: CALCIUM CARBONATE 500 MG CHEWABLE PO SCH (09:05)
[2022-09-09] MEDS: NICOTINE GUM (POLACRILEX) 2 MG GUM BUCCAL PRN ×3 (09:06→22:17)
--- NOTE | 2022-09-09 10:43 | P.PN ---
Progress Note - Text Progress Note Date: 09/09/22 Interval hx: Patient was seen taking part in group this morning. Patient appears to be more appropriate today with brighter calm and cooperative. She states that her mood has been improving and denied any issues over the weekend. She claims that she had a "panic attack" this morning and states that she had taken Ativan for it. She claims that she very rarely gets C's. She states that at home she has a Xanax instead, we spoke about the disadvantages of Xanax. She claims that she is still not spoken with an corporate attorney and was fairly focused on discharge today. She appears to be calmer today and appropriately during interaction. Hygiene and grooming improving. She reports eating well and denies other concerns. At this time she is denying any auditory or visual hallucinations, denying any delusions or paranoia at this time. Denying any suicidal or homicidal ideations intent or plan. Mental status examination: General Appearance: Patient appears to be thin, stated age, is alert, or directable and less intrusive today. Patient appears to have fair hygiene and grooming. Behavior: Patient is seated without any agitated behavior. Appropriate today. Speech: Patient's speech is improving in rate. Mood/Affect: Patient reports their mood is "alright", affect is improving, and appropriate. Suicidality/Homicidality: Patient denies having any homicidal ideation intent or plan. Denies any suicidal ideations intent or plan Perceptions: Patient denies any visual hallucinations and denies any auditory hallucinations Though content/process: There is no evidence of any delusional thought content, less tangential. More more goal oriented. Memory and concentration: AOX3, grossly intact for the purposes of this session Judgment and insight: improving mildly IMPRESSIONS: Bipolar disorder unspecified Uncomplicated bereavement hx of PTSD cannabis use disorder nicotine dependence PLAN: -Patient is admitted under involuntary status to [facility] for stabilization of psychiatric symptoms and safety. Patient has signed medication consent and is placed in patient's chart. -Medications : Continue lithium 600 mg HS for mood stabilziation. Li level 0.7 on 09/08 continue Zyprexa 10 mg qhs for insomnia/mood stabilization. Continue trazodone 50 mg qhs for insomnia/mood -Ativan and Haldol PRN for agitation/aggression -NRT - nicotine patch -SW on board for discharge planning. Encourage patient to participate in groups to work on coping skills. Will await deferral and court date. likely discharge tomorrow if patient improves and ends up signing deferral.
[2022-09-09] MEDS: MAG HYDROX/AL HYDROX/SIMETH 30 ML CUP PO PRN (18:44)
[2022-09-09] MEDS: traZODone HCL 50 MG TAB PO SCH (22:14)
[2022-09-09] MEDS: LITHIUM CARBONATE 300 MG CAP PO SCH (22:14)
[2022-09-09] MEDS: LATANOPROST 0.005% OPHTH DROPS 2.5 ML BTL BOTH EYES SCH (22:14)
[2022-09-09] MEDS: OLANZapine 10 MG TAB PO SCH (22:14)
[2022-09-10] MEDS: LORazepam 1 MG TAB PO PRN (00:20)
[2022-09-10 07:04] VITALS: PULSE 79; RESP 17
[2022-09-10] MEDS: IBUPROFEN 600 MG TAB PO PRN (08:59)
[2022-09-10] MEDS: CALCIUM CARBONATE 500 MG CHEWABLE PO SCH (08:59)
[2022-09-10] MEDS: PANTOPRAZOLE 40 MG TABLET PO SCH (09:00)
[2022-09-10] MEDS: ASCORBIC ACID 500 MG TAB PO SCH (09:00)
[2022-09-10] MEDS: MULTIVITAMINS, THERA 1 EACH TAB PO SCH (09:00)
[2022-09-10] MEDS: LORATADINE 10 MG TAB PO SCH (09:00)
[2022-09-10] MEDS: NICOTINE GUM (POLACRILEX) 2 MG GUM BUCCAL PRN (09:01)
--- NOTE | 2022-09-10 10:32 | P.DS ---
Providers Date of admission: 09/02/22 23:23 Expected date of discharge: 09/10/22 Attending physician: Hever Flower MD Consults: 09/02/22 23:36 Consult Physician Routine Consulting Provider: Yessi Physician Consult Reason/Comments: H&P and medical Do you want consulting provider notified?: Yes Primary care physician: Stated None - Discharge Diagnosis(es) (1) Bipolar disorder, unspecified Current Visit: Yes Status: Acute Priority: High (2) Uncomplicated bereavement Current Visit: Yes Status: Acute Priority: Medium (3) History of posttraumatic stress disorder (PTSD) Current Visit: Yes Status: Acute Priority: Medium (4) Cannabis use disorder Current Visit: Yes Status: Acute Priority: High (5) Nicotine dependence Current Visit: Yes Status: Acute Priority: Low Hospital Course: Admission HPI: Admission note was completed by insurance writer " Patient is a 57 yo female, cu rrently lives alone in an apartment, single, 5 kids. Patient presented to the hospital yesterday and was seen in the ED. patient apparently was hyperverbal, agitated and complainging on "zoloft withdrawal". She was admitted to the MHU involuntarily and was seen in the hallways and demanded to speak to insurance writer in the office today. she was positive for thc and BZD. she appeared to be rambling, loose associations, hyperverbal bizzare and intrusive during the interview. she states that she was taking zoloft and was not feeling well with it after taking 25 mg. she states that she was having alot of somatic sx and then finally stopped taking it 2 weeks ago and her conditon got worst. she states that she was feeling she had a "brain infection". she was displaying racing thoughts, difficult to redirect. she states that she is not able to keep her house maintained and clean and cant maintain herself care either. she states that her sleep has been poor, appetite is fair. Patient denies any suicidal or homicidal ideations intent or plan. At this time patient denies any auditory or visual hallucinations. she claims that she uses thc regularly and cigarettes aswell. denies any other rec drug use. " Hospital course: Upon admission to the unit patient was admitted involuntarily on a petition and certificate and a second certificate was completed and faxed with the courts. Patient ended up signing a deferral with the attorney lawyer and agreeing to treatment. Patient got along well with other patients on the unit and followed unit protocol. Patient was compliant with the medications and denied any side effects throughout hospital course. Patient was started on Zyprexa and increased her dose of 10 mg daily at bedtime for mood stabilization/insomnia, trazodone 100 mg daily at bedtime when necessary for insomnia, lithium 600 mg daily at bedtime for mood stabilization, lithium level drawn on 09/08 was 0.7. Patient spoke of her stressors and engaged in therapy both group and individual. Patient was also seen by medical team for history and physical exam. Throughout the course of the hospitalization patient gradually improved with regards to mood, anxiety, sleep and became more future oriented with improved insight and judgment. On the day of discharge patient denied any suicidal or homicidal ideations intent or plan denied any auditory or visual hallucinations. Patient endorsed wanting to live for her kids and grand kids. The patient denied any access to guns or weapons. Patient denied any paranoia and did not endorse any delusions. Patient does have a significant history of substance abuse and was counseled on abstaining from all substances including alcohol and marijuana. Patient elected to do outpatient substance use treatment program through [facility]. Patient was also counseled on the medications and need for regular compliance and was encouraged to follow-up with their outpatient appointment for mental health and also for primary care. Prior to discharge a family meeting will be arranged by social media director to answer any questions and ensure safety upon discharge. Mental status exam: General Appearance: Patient appears to be thin, well dressed, stated age is al ert, pleasant, and cooperative. Patient is in no acute distress and has improved hygiene and grooming Behavior: Patient is calmly seated without any agitated behavior. cooperative and pleasant Speech: Patient's speech is fluent and nonpressured. Mood/Affect: Patient reports their mood is "better", affect is congruent and euthymic. Suicidality/Homicidality: Patient denies having any suicidal or homicidal ideation intent or plan. Perceptions: Patient denies any auditory or visual hallucinations. Though content/process: There is no evidence of any delusional thought content and thought process is linear and goal-directed. more future oriented Memory and concentration: AOX3, grossly intact for the purposes of this session. Can spell "WORLD" backwards correctly. Judgment and insight: improved with guarded prognosis Impression: Bipolar disorder unspecified Uncomplicated bereavement History of PTSD Cannabis use disorder Nicotine dependence Plan: -Continue with discharge today as patient has improved and stabilized psychiatrically and is not currently an imminent threat to herself and/or others. Patient will remain at chronically elevated risk for harm to self and/or others due to her substance abuse. -Continue medications: [place] 600 mg daily at bedtime for mood stabilization, Zyprexa 10 mg daily at bedtime for insomnia/mood stabilization, trazodone 100 mg daily at bedtime when necessary for insomnia. -Patient was counseled on the need for medication compliance and appropriate follow-up at mental health and also primary care for medical issues. Patient verbalized understanding and agreed. -Social work to arrange for and conduct family meeting to ensure safety upon discharge and answer any questions/concerns. Social work also to arrange for patients follow up appointments for psychiatric care along with follow up with primary care provider. -Patient counseled on abstaining from recreational drugs and marijuana and alcohol. Was informed/educated on the adverse effects on their physical and mental health. Patient verbally agreed and understood. -Patient was instructed to return to the hospital or seek immediate medical care if their psychiatric or medical symptoms do worsen or reoccur. Allergies Allergy/AdvReac Type Severity Reaction Status Date / Time quetiapine [From Seroquel] Allergy Hallucinati Verified 09/02/22 17:32 ons sulfamethoxazole Allergy Rash/Hives Verified 09/02/22 17:32 [From Bactrim] trimethoprim [From Bactrim] Allergy Rash/Hives Verified 09/02/22 17:32 Laboratory Results WBC 5.5 k/uL (3.8-10.6) 09/02/22 16:58 RBC 4.40 m/uL (3.80-5.40) 09/02/22 16:58 Hgb 13.7 gm/dL (11.4-16.0) 09/02/22 16:58 Hct 40.6 % (34.0-46.0) 09/02/22 16:58 MCV 92.1 fL (80.0-100.0) 09/02/22 16:58 MCH 31.2 pg (25.0-35.0) 09/02/22 16:58 MCHC 33.8 g/dL (31.0-37.0) 09/02/22 16:58 RDW 12.5 % (11.5-15.5) 09/02/22 16:58 Plt Count 217 k/uL (150-450) 09/02/22 16:58 MPV 6.7 09/02/22 16:58 Neutrophils % 63 % 09/02/22 16:58 Lymphocytes % 27 % 09/02/22 16:58 Monocytes % 6 % 09/02/22 16:58 Eosinophils % 2 % 09/02/22 16:58 Basophils % 0 % 09/02/22 16:58 Neutrophils # 3.4 k/uL (1.3-7.7) 09/02/22 16:58 Lymphocytes # 1.5 k/uL (1.0-4.8) 09/02/22 16:58 Monocytes # 0.4 k/uL (0-1.0) 09/02/22 16:58 Eosinophils # 0.1 k/uL (0-0.7) 09/02/22 16:58 Basophils # 0.0 k/uL (0-0.2) 09/02/22 16:58 Sodium 140 mmol/L (137-145) 09/02/22 16:58 Potassium 4.1 mmol/L (3.5-5.1) 09/02/22 16:58 Chloride 108 mmol/L (98-107) H 09/02/22 16:58 Carbon Dioxide 22 mmol/L (22-30) 09/02/22 16:58 Anion Gap 10 mmol/L 09/02/22 16:58 BUN 10 mg/dL (7-17) 09/02/22 16:58 Creatinine 0.71 mg/dL (0.52-1.04) 09/02/22 16:58 Est GFR (CKD-EPI)AfAm >90 (>60 ml/min/1.73 sqM) 09/02/22 16:58 Est GFR (CKD-EPI)NonAf >90 (>60 ml/min/1.73 sqM) 09/02/22 16:58 Glucose 86 mg/dL (74-99) 09/02/22 16:[address] Glu mg/dL 105 mg/dL 09/02/22 16:58 Hemoglobin A1c 5.3 % (<=6.0) 09/02/22 16:58 Calcium 9.1 mg/dL (8.4-10.2) 09/02/22 16:58 Total Bilirubin 0.5 mg/dL (0.2-1.3) 09/02/22 16:58 AST 33 U/L (14-36) 09/02/22 16:58 ALT 19 U/L (4-34) 09/02/22 16:58 Alkaline Phosphatase 38 U/L (38-126) 09/02/22 16:58 C-Reactive Protein <0.5 mg/dL (<1.0) 09/02/22 16:58 Total Protein 6.7 g/dL (6.3-8.2) 09/02/22 16:58 Albumin 4.1 g/dL (3.5-5.0) 09/02/22 16:58 Triglycerides 113.00 mg/dL (0.00-149.00) 09/02/22 16:58 Cholesterol 183.00 mg/dL (0.00-200.00) 09/02/22 16:58 LDL Cholesterol, Calc 111.3 mg/dL (0.0-131.0) 09/02/22 16:58 VLDL Cholesterol, Calc 22.60 mg/dL (5.00-40.00) 09/02/22 16:58 HDL Cholesterol 49.10 mg/dL (40.00-60.00) 09/02/22 16:58 Cholesterol/HDL Ratio 3.73 Ratio 09/02/22 16:58 Amylase 91 U/L (30-110) 09/02/22 16:58 Lipase 116 U/L (23-300) 09/02/22 16:58 TSH 0.327 mIU/L (0.465-4.680) L 09/02/22 16:58 Free T4 1.29 ng/dL (0.78-2.19) 09/02/22 16:58 Urine Color Yellow 09/02/22 15:58 Urine Appearance Clear (Clear) 09/02/22 15:58 Urine pH 6.5 (5.0-8.0) 09/02/22 15:58 Ur Specific [place] 1.017 (1.001-1.035) 09/02/22 15:58 Urine Protein Negative (Negative) 09/02/22 15:58 Urine Glucose (UA) Negative (Negative) 09/02/22 15:58 Urine Ketones Negative (Negative) 09/02/22 15:58 Urine Blood Negative (Negative) 09/02/22 15:58 Urine Nitrite Negative (Negative) 09/02/22 15:58 Urine Bilirubin Negative (Negative) 09/02/22 15:58 Urine Urobilinogen <2.0 mg/dL (<2.0) 09/02/22 15:58 Ur Leukocyte Esterase Negative (Negative) 09/02/22 15:58 Urine Opiates Screen Not Detected (NotDetected) 09/02/22 15:50 Ur Oxycodone Screen Not Detected (NotDetected) 09/02/22 15:50 Urine Methadone Screen Not Detected (NotDetected) 09/02/22 15:50 Ur Propoxyphene Screen Not Detected (NotDetected) 09/02/22 15:50 Ur Barbiturates Screen Not Detected (NotDetected) 09/02/22 15:50 U Tricyclic Antidepress Not Detected (NotDetected) 09/02/22 15:50 Ur Phencyclidine Scrn Not Detected (NotDetected) 09/02/22 15:50 Ur Amphetamines Screen Not Detected (NotDetected) 09/02/22 15:50 U Methamphetamines Scrn Not Detected (NotDetected) 09/02/22 15:50 U Benzodiazepines Scrn Detected (NotDetected) H 09/02/22 15:50 [place] 0.7 mmol/L 09/08/22 06:40 Urine Cocaine Screen Not Detected (NotDetected) 09/02/22 15:50 U Marijuana (THC) Screen Detected (NotDetected) H 09/02/22 15:50 Coronavirus (PCR) Not Detected (Not Detectd) 09/02/22 22:40 Vital Signs Temp 97.9 F 09/10/22 06:00 Pulse 79 09/10/22 06:00 Resp 17 09/10/22 06:00 BP 101/56 09/09/22 06:19 Pulse Ox 98 09/10/22 06:00 FiO2 Patient Condition at Discharge: Stable Plan - Discharge Summary Discharge Rx Participant: No New Discharge Prescriptions: New Nicotine Gum (Polacrilex) [Nicorette] 4 mg BUCCAL Q4HR PRN 30 Days #180 pieceofgum PRN Reason: Nicotine Cravings OLANZapine [ZyPREXA] 10 mg PO HS 30 Days #30 tab [place] Carbonate 600 mg PO HS 30 Days #60 cap Ibuprofen [Motrin] 600 mg PO Q6HR PRN tab PRN Reason: Moderate Pain (Scale 4 To 6) traZODone HCL 100 mg PO HS PRN 30 Days #30 tablet PRN Reason: Insomnia Acetaminophen Tab [Tylenol] 650 mg PO Q4HR PRN tab PRN Reason: Mild Pain (Scale 1 To 3) Continue Biotin [Lykr-Supy-Ckbrp] 10,000 mcg PO DAILY Loratadine [Claritin] 10 mg PO DAILY Latanoprost Ophth [Xalatan 0.005%] 1 drop BOTH EYES HS Multivitamins, Thera [Multivitamin (formulary)] 1 tab PO DAILY Calcium Carbonate [Calcium] 600 mg PO DAILY Omeprazole [PriLOSEC] 20 mg PO AC-BRKFST Ascorbic Acid [Vitamin C] 1,000 mg PO DAILY Discontinued ALPRAZolam [Xanax] 1 mg PO TID PRN PRN Reason: Anxiety Discharge Medication List Ascorbic Acid [Vitamin C] 1,000 mg PO DAILY 09/02/22 [History] Biotin [Yjcy-Tujm-Dcksu] 10,000 mcg PO DAILY 09/02/22 [History] Calcium Carbonate [Calcium] 600 mg PO DAILY 09/02/22 [History] Latanoprost Ophth [Xalatan 0.005%] 1 drop BOTH EYES HS 09/02/22 [History] Loratadine [Claritin] 10 mg PO DAILY 09/02/22 [History] Multivitamins, Thera [Multivitamin (formulary)] 1 tab PO DAILY 09/02/22 [History] Omeprazole [PriLOSEC] 20 mg PO AC-BRKFST 09/02/22 [History] Acetaminophen Tab [Tylenol] 650 mg PO Q4HR PRN tab 09/10/22 [Rx] Ibuprofen [Motrin] 600 mg PO Q6HR PRN tab 09/10/22 [Rx] [place] Carbonate 600 mg PO HS 30 Days #60 cap 09/10/22 [Rx] Nicotine Gum (Polacrilex) [Nicorette] 4 mg BUCCAL Q4HR PRN 30 Days #180 pieceofgum 09/10/22 [Rx] OLANZapine [ZyPREXA] 10 mg PO HS 30 Days #30 tab 09/10/22 [Rx] traZODone HCL 100 mg PO HS PRN 30 Days #30 tablet 09/10/22 [Rx] Follow up Appointment(s)/Referral(s): None,Stated [Primary Care Provider] - 1-2 days Activity/Diet/Wound Care/Special Instructions: Avoid the use of street drugs and alcohol. Take all medications as prescribed. When you are in need of refills on your medications, please contact your medical provider and/or outpatient psychiatrist to have this done. Please go to scheduled outpatient appointments for aftercare treatment. If symptoms return or become worse, call the crisis line at and/or go to the nearest emergency room for evaluation. Discharge Disposition: HOME SELF-CARE
== END 2022-09-10 12:34 | disposition home or self-care (01) | DRG 753 ==
LOC: EC 12:21 → 3MHU 23:23
PROVIDERS: ADMIT Psychiatry & Neurology Psychiatry; ATTEND Psychiatry & Neurology Psychiatry
DX: F31.9 Bipolar disorder, unspecified (principal); F12.90 Cannabis use, unspecified, uncomplicated; F17.200 Nicotine dependence, unspecified, uncomplicated; F43.10 Post-traumatic stress disorder, unspecified; G47.00 Insomnia, unspecified; Z63.4 Disappearance and death of family member; Z79.899 Other long term (current) drug therapy; Z20.822 Contact with and (suspected) exposure to COVID-19
CPT/HCPCS: 36415; 80053; 80061; 80178; 80306; 81003; 82075; 82150; 83036; 83690; 84439; 84443; 85025; 86140; 87635; 99285

== ENCOUNTER 2024-02-06 14:08 | Observation (INO) | payer OTHER ==
--- NOTE | 2024-02-06 14:36 | ED ---
General Adult HPI - General Chief complaint: Arrhythmia/Palpitations Stated complaint: Heart Palpitations Time Seen by Provider: 02/06/24 14:15 Source: patient, RN notes reviewed, old records reviewed Mode of arrival: ambulatory Limitations: no limitations - History of Present Illness Initial comments: Is a 58-year-old female who presents to the emergency department stating she has had heart racing on and off for the last 6 months. Patient denies diabetes hypertension high cholesterol. Patient states she does smoke marijuana. Patient denies any other drug use. Patient states currently she does not feel her heart racing. Patient states it only happens for a few minutes and then goes away. Patient states occasionally she short of breath but again she is not short of breath now. Patient Nuys any fever chills or cough. Patient Nuys any swelling to her legs or calf tenderness. Patient denies any back pain. - Related Data Home Medications Medication Instructions Recorded Confirmed Ascorbic Acid [Vitamin C] 1,000 mg PO DAILY 09/02/22 02/06/24 Biotin [Ytzy-Fdmj-Hknag] 10,000 mcg PO DAILY 09/02/22 02/06/24 Latanoprost Ophth [Xalatan 0.005%] 1 drop BOTH EYES HS 09/02/22 02/06/24 Loratadine [Claritin] 10 mg PO DAILY 09/02/22 02/06/24 Multivitamins, Thera [Multivitamin 1 tab PO DAILY 09/02/22 02/06/24 (formulary)] Omeprazole [PriLOSEC] 20 mg PO DAILY 09/02/22 02/06/24 ALPRAZolam [Xanax] 1 mg PO TID PRN 02/06/24 02/06/24 Aspirin EC [Ecotrin Low Dose] 81 mg PO DAILY 02/06/24 02/06/24 Cholecalciferol (Vitamin D3) 50 mcg PO DAILY 02/06/24 02/06/24 [Vitamin D3 (50 Mcg = 2000 Iu)] Cyclobenzaprine [Flexeril] 5 mg PO TID 02/06/24 02/06/24 Vitamin E (Dl,Tocopheryl Acet) 400 unit PO DAILY 02/06/24 02/06/24 [Vitamin E (400 Iu = 180 mg)] traZODone HCL 100 mg PO HS 12/13/24 12/13/24 Allergies Allergy/AdvReac Type Severity Reaction Status Date / Time olanzapine [From Zyprexa] Allergy Unknown Verified 02/06/24 16:05 quetiapine [From Seroquel] Allergy Hallucinati Verified 02/06/24 16:05 ons sertraline [From Zoloft] Allergy Unknown Verified 02/06/24 16:05 sulfamethoxazole Allergy Rash/Hives Verified 02/06/24 16:05 [From Bactrim] trimethoprim [From Bactrim] Allergy Rash/Hives Verified 02/06/24 16:05 Review of Systems ROS Statement: Those systems with pertinent positive or pertinent negative responses have been documented in the HPI. ROS Other: All systems not noted in ROS Statement are negative. Past Medical History Past Medical History: No Reported History, Eye Disorder Additional Past Medical History / Comment(s): prolapsed uterus. glaucoma History of Any Multi-Drug Resistant Organisms: None Reported Past Surgical History: Cholecystectomy, Tonsillectomy, Tubal Ligation Additional Past Surgical History / Comment(s): colonoscopy Past Anesthesia/Blood Transfusion Reactions: No Reported Reaction Past Psychological History: PTSD Smoking Status: Vaper Past Alcohol Use History: Occasional Past Drug Use History: Marijuana, Prescription Drug Abuse General Exam - General Exam Comments Initial Comments: GENERAL: Patient is well-developed and well-nourished. Patient is nontoxic and well-hydrated and is in mild distress. ENT: Neck is soft and supple. No significant lymphadenopathy is noted. Oropharynx is clear. Moist mucous membranes. Neck has full range of motion without eliciting any pain. EYES: The sclera were anicteric and conjunctiva were pink and moist. Extraocular movements were intact and pupils were equal round and reactive to light. Eyelids were unremarkable. PULMONARY: Unlabored respirations. Good breath sounds bilaterally. No audible rales rhonchi or wheezing was noted. CARDIOVASCULAR: There is a regular rate and rhythm without any murmurs gallops or rubs. ABDOMEN: Soft and nontender with normal bowel sounds. SKIN: Skin is clear with no lesions or rashes and otherwise unremarkable. NEUROLOGIC: Patient is alert and oriented x3. Cranial nerves II through XII are grossly intact. Motor and sensory are also intact. Normal speech, volume and content. Symmetrical smile. MUSCULOSKELETAL: Normal extremities with adequate strength and full range of motion. LYMPHATICS: No significant lymphadenopathy is noted PSYCHIATRIC: Patient is very anxious Limitations: no limitations Course Vital Signs 02/06/24 14:11 Temperature 97.7 F Pulse Rate 99 Respiratory 18 Rate Blood Pressure 120/78 O2 Sat by Pulse 100 Oximetry Medical Decision Making - Medical Decision Making I interpreted by myself EKG shows sinus rhythm at 87 bpm MI interval is 137 QRS is 89 QT interval 365 QTc is 410. Patient's EKG shows no ST segment elevation or depression Was pt. sent in by a medical professional or institution (KEN Valdez, ORGANIC PREPARATION ANALYST, urgent care, hospital, or retirement...) When possible be specific @ -No Did you speak to anyone other than the patient for history (EMS, parent, family, police, friend...)? What history was obtained from this source @ -No Did you review nursing and triage notes (agree or disagree)? Why? @ -I reviewed and agree with nursing and triage notes Were old charts reviewed (outside hosp., previous admission, EMS record, old EKG, old radiological studies, urgent care reports/EKG's, retirement records)? Report findings @ -No old charts were reviewed Differential Diagnosis? @ -Differential Palpitations Ventricular arrhythmias, atrial arrhythmias, myocardial infarction, anemia, thyrotoxicosis, electrolyte imbalance, hypokalemia, pulmonary embolism, pulmonary disease, drugs, alcohol, anxiety, stress.... This is not meant to be an all-inclusive list. EKG interpreted by me (3pts min.). @ -As above X-rays interpreted by me (1pt min.). @ -Chest x-ray shows no acute normality CT interpreted by me (1pt min.). @ -None done U/S interpreted by me (1pt. min.). @ -None done What testing was considered but not performed or refused? (CT, X-rays, U/S, labs)? Why? @ -None What meds were considered but not given or refused? Why? @ -None Did you discuss the management of the patient with other professionals (professionals i.e. KEN Valdez, ORGANIC PREPARATION ANALYST, lab, RT, psych nurse, social media content specialist, mig tig welder, teacher, wildlife officer, case folder)? Give summary @ -I spoke with [facility] and they agreed to admit the patient Was smoking cessation discussed for >3mins.? @ -No Was critical care preformed (if so, how long)? @ -No Were there social determinants of health that impacted care today? How? (Homelessness, low income, unemployed, alcoholism, drug addiction, transportation, low edu. Level, literacy, decrease access to med. care, long-term, rehab)? @ -No Was there de-escalation of care discussed even if they declined (Discuss DNR or withdrawal of care, Hospice)? DNR status @ -No What co-morbidities impacted this encounter? (DM, HTN, Smoking, COPD, CAD, Cancer, CVA, ARF, Chemo, Hep., AIDS, mental health diagnosis, sleep apnea, morbid obesity)? @ -None Was patient admitted / discharged? Hospital course, mention meds given and route, prescriptions, significant lab abnormalities, going to OR and other pertinent info. @ -Patient's TSH was 0 so patient will be admitted for further evaluation since she has no one to follow-up with Undiagnosed new problem with uncertain prognosis? @ -No Drug Therapy requiring intensive monitoring for toxicity (Heparin, Nitro, Insulin, Cardizem)? @ -No Were any procedures done? @ -No Diagnosis/symptom? @ -Palpitations Acute, or Chronic, or Acute on Chronic? @ -Acute Uncomplicated (without systemic symptoms) or Complicated (systemic symptoms)? @ -Complicated Side effects of treatment? @ -No Exacerbation, Progression, or Severe Exacerbation? @ -No Poses a threat to life or bodily function? How? (Chest pain, [place], [place], pneumonia, PE, COPD, DKA, ARF, appy, cholecystitis, CVA, Diverticulitis, Homicidal, Suicidal, threat to staff... and all critical care pts) @ -Yes this can be a possible arrhythmia which would lead to endorgan dysfunction Diagnosis/symptom? @ -Hyperthyroidism Acute, or Chronic, or Acute on Chronic? @ -Acute Uncomplicated (without systemic symptoms) or Complicated (systemic symptoms)? @ -Acute complicated Side effects of treatment? @ -None Exacerbation, Progression, or Severe Exacerbation] @ -No Poses a threat to life or bodily function? @ -No - Lab Data Result diagrams: 02/06/24 14:43 02/06/24 14:43 Lab Results 02/06/24 02/06/24 02/06/24 Range/Units 13:57 14:43 14:43 WBC 5.4 (3.8-10.6) k/uL RBC 4.93 (3.80-5.40) m/uL Hgb 14.5 (11.4-16.0) gm/dL Hct 43.9 (34.0-46.0) % MCV 89.1 (80.0-100.0) fL MCH 29.5 (25.0-35.0) pg MCHC 33.2 (31.0-37.0) g/dL RDW 12.0 (11.5-15.5) % Plt Count 219 (150-450) k/uL MPV 6.6 Neutrophils % 57 % Lymphocytes % 31 % Monocytes % 7 % Eosinophils % 3 % Basophils % 1 % Neutrophils # 3.0 (1.3-7.7) k/uL Lymphocytes # 1.7 (1.0-4.8) k/uL Monocytes # 0.4 (0-1.0) k/uL Eosinophils # 0.2 (0-0.7) k/uL Basophils # 0.0 (0-0.2) k/uL PT 11.2 (10.0-12.5) sec INR 1.0 (<1.2) APTT 21.3 L (22.0-30.0) sec Sodium 136 L (137-145) mmol/L Potassium 3.8 (3.5-5.1) mmol/L Chloride 108 H (98-107) mmol/L Carbon Dioxide 23 (22-30) mmol/L Anion Gap 5 mmol/L BUN 9 (7-17) mg/dL Creatinine 0.64 (0.52-1.04) mg/dL Est GFR (CKD-EPI)AfAm >90 (>60 ml/min/1.73 sqM) Est GFR (CKD-EPI)NonAf >90 (>60 ml/min/1.73 sqM) Glucose 82 (74-99) mg/dL Calcium 9.0 (8.4-10.2) mg/dL Magnesium 1.9 (1.6-2.3) mg/dL Total Bilirubin 0.3 (0.2-1.3) mg/dL AST 20 (14-36) U/L ALT 14 (4-34) U/L Alkaline Phosphatase 44 (38-126) U/L Troponin I (0.000-0.034) ng/mL Total Protein 6.9 (6.3-8.2) g/dL Albumin 4.5 (3.5-5.0) g/dL TSH <0.015 L (0.465-4.680) mIU/L Urine Opiates Screen (NotDetected) Ur Oxycodone Screen (NotDetected) Urine Methadone Screen (NotDetected) Ur Barbiturates Screen (NotDetected) U Tricyclic Antidepress (NotDetected) Ur Phencyclidine Scrn (NotDetected) Ur Amphetamines Screen (NotDetected) U Methamphetamines Scrn (NotDetected) U Benzodiazepines Scrn (NotDetected) Urine Cocaine Screen (NotDetected) U Marijuana (THC) Screen (NotDetected) 02/06/24 02/06/24 Range/Units 14:43 14:49 WBC (3.8-10.6) k/uL RBC (3.80-5.40) m/uL Hgb (11.4-16.0) gm/dL Hct (34.0-46.0) % MCV (80.0-100.0) fL MCH (25.0-35.0) pg MCHC (31.0-37.0) g/dL RDW (11.5-15.5) % Plt Count (150-450) k/uL MPV Neutrophils % % Lymphocytes % % Monocytes % % Eosinophils % % Basophils % % Neutrophils # (1.3-7.7) k/uL Lymphocytes # (1.0-4.8) k/uL Monocytes # (0-1.0) k/uL Eosinophils # (0-0.7) k/uL Basophils # (0-0.2) k/uL PT (10.0-12.5) sec INR (<1.2) APTT (22.0-30.0) sec Sodium (137-145) mmol/L Potassium (3.5-5.1) mmol/L Chloride (98-107) mmol/L Carbon Dioxide (22-30) mmol/L Anion Gap mmol/L BUN (7-17) mg/dL Creatinine (0.52-1.04) mg/dL Est GFR (CKD-EPI)AfAm (>60 ml/min/1.73 sqM) Est GFR (CKD-EPI)NonAf (>60 ml/min/1.73 sqM) Glucose (74-99) mg/dL Calcium (8.4-10.2) mg/dL Magnesium (1.6-2.3) mg/dL Total Bilirubin (0.2-1.3) mg/dL AST (14-36) U/L ALT (4-34) U/L Alkaline Phosphatase (38-126) U/L Troponin I <0.012 (0.000-0.034) ng/mL Total Protein (6.3-8.2) g/dL Albumin (3.5-5.0) g/dL TSH (0.465-4.680) mIU/L Urine Opiates Screen Not Detected (NotDetected) Ur Oxycodone Screen Not Detected (NotDetected) Urine Methadone Screen Not Detected (NotDetected) Ur Barbiturates Screen Not Detected (NotDetected) U Tricyclic Antidepress Not Detected (NotDetected) Ur Phencyclidine Scrn Not Detected (NotDetected) Ur Amphetamines Screen Not Detected (NotDetected) U Methamphetamines Scrn Not Detected (NotDetected) U Benzodiazepines Scrn Detected H (NotDetected) Urine Cocaine Screen Not Detected (NotDetected) U Marijuana (THC) Screen Detected H (NotDetected) Disposition Clinical Impression: Palpitations, Hyperthyroidism Disposition: ADMITTED IP TO THIS HOSP Referrals: None,Stated [Primary Care Provider] - 1-2 days Time of Disposition: 17:45
[2024-02-06 14:59] LABS: Basophils % (A) 1 %; Eosinophils # (A) 0.2 k/uL (0-0.7); Eosinophils % (A) 3 %; HCT 43.9 % (34.0-46.0); HGB 14.5 gm/dL (11.4-16.0); Lymphocytes # (A) 1.7 k/uL (1.0-4.8); Lymphocytes % (A) 31 %; MCH 29.5 pg (25.0-35.0); MCHC 33.2 g/dL (31.0-37.0); MCV 89.1 fL (80.0-100.0); Mean Platelet Volume 6.6; Monocytes # (A) 0.4 k/uL (0-1.0); Monocytes % (A) 7 %; Neutrophils % (A) 57 %; Platelet Count 219 k/uL (150-450); RBC 4.93 m/uL (3.80-5.40); WBC 5.4 k/uL (3.8-10.6)
[2024-02-06 15:11] LABS: ALT 14 U/L (4-34); AST 20 U/L (14-36); African American GFR (CKD) >90 (>60 ml/min/1.73 sqM); Albumin 4.5 g/dL (3.5-5.0); Alkaline Phosphatase 44 U/L (38-126); Anion Gap 5 mmol/L; Blood Urea Nitrogen 9 mg/dL (7-17); Carbon Dioxide 23 mmol/L (22-30); Chloride 108 mmol/L (98-107); Glucose 82 mg/dL (74-99); Magnesium 1.9 mg/dL (1.6-2.3); Non-African American GFR(CKD) >90 (>60 ml/min/1.73 sqM); Potassium 3.8 mmol/L (3.5-5.1); Sodium 136 mmol/L (137-145); Total Bilirubin 0.3 mg/dL (0.2-1.3); Total Protein 6.9 g/dL (6.3-8.2)
[2024-02-06 15:32] LABS: Amphetamine Screen,Urine Not Detected (NotDetected); Barbiturate Screen,Urine Not Detected (NotDetected); Benzodiazepines Screen,Urine Detected (NotDetected); Cocaine Screen,Urine Not Detected (NotDetected); Methadone Screen, Urine Not Detected (NotDetected); Opiate Screen,Urine Not Detected (NotDetected); Oxycodone Screen, Urine Not Detected (NotDetected); Phencyclidine Screen,Urine Not Detected (NotDetected); Tricyclic Antidepressant,Urine Not Detected (NotDetected); Urn Cannabinoid Scrn Detected (NotDetected)
--- NOTE | 2024-02-06 15:53 | XR ---
EXAMINATION TYPE: XR chest 2V DATE OF EXAM: 02/06/2024 3:45 PM COMPARISON: Chest radiographs from 06/11/2010 CLINICAL INDICATION: Female, 58 years old with history of dysrhythmia; [facility] TECHNIQUE: XR chest 2V Frontal and lateral views of the chest. FINDINGS: Lungs/Pleura: There is no evidence of pleural effusion, focal consolidation, or pneumothorax. Pulmonary vascularity: Unremarkable. Heart/mediastinum: Cardiomediastinal silhouette is unremarkable. Musculoskeletal: No acute osseous pathology. IMPRESSION: No acute cardiopulmonary disease/process. [facility], , 02/06/2024 3:51 PM
[2024-02-06 16:03] LABS: Prothrombin Time 11.2 sec (10.0-12.5)
[2024-02-06 16:05] LABS: Partial Thromboplastin Time 21.3 sec (22.0-30.0)
[2024-02-07] MEDS: MULTIVITAMINS, THERA 1 EACH TAB PO SCH (10:23)
[2024-02-07] MEDS: PANTOPRAZOLE 40 MG TABLET PO SCH (10:23)
[2024-02-07] MEDS: CHOLECALCIFEROL 25 MCG (1000 IU) TABLET PO SCH (10:23)
[2024-02-07] MEDS: LORATADINE 10 MG TAB PO SCH (10:23)
[2024-02-07] MEDS: VITAMIN E (DL,TOCOPHERYL ACET) 400 UNIT (180 MG) CAP PO SCH (10:24)
[2024-02-07] MEDS: CYCLOBENZAPRINE 5 MG TAB PO SCH (10:24)
[2024-02-07] MEDS ORDERED: ALPRAZolam 1 MG TAB PO PRN (12:39)
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
[2024-02-07] MEDS: traZODone HCL 100 MG TAB PO SCH (20:46)
[2024-02-07] MEDS: LATANOPROST 0.005% OPHTH DROPS 2.5 ML BTL BOTH EYES SCH (20:46)
[2024-02-08] MEDS: METOPROLOL SUCCINATE (ER) 25 MG TAB.ER.24H PO SCH (10:32)
[2024-02-08] MEDS: ASPIRIN 81 MG PO SCH (10:32)
[2024-02-08] MEDS: NON FORMULARY DRUG (Biotin [Hair-Skin-Nails] 10,000 MCG Tab.Chew) PO SCH (10:32)
[2024-02-08] MEDS: CYCLOBENZAPRINE 5 MG TAB PO PRN (10:33)
[2024-02-08 11:45] LABS: T4, Free (Free Thyroxine) 1.1 ng/dL (0.78-2.19)
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
--- NOTE | 2024-02-08 20:18 | P.PN ---
Subjective Progress Note Date: 02/08/24 58-old female came with complaints of palpitation going on for about 6 months. EKG here is sinus rhythm rate controlled at [address]-T wave changes. Patient does have history of PTSD and anxiety disorder for which patient is on trazodone and Xanax. Patient urine drug screen is positive for marijuana. Patient denied any chest pain fever chills rest of the workup is all negative. 02/08/2024 Patient evaluated today sitting up in the bed. Patient reports feeling signific antly anxious. Her TSH was less than 0.15 however free T4 is within normal limits. Urine drug toxicology showing benzodiazepines and marijuana. Echocardiogram is currently pending at this time. Plans to follow-up with cardiology in the office and have an event monitor placed then. Patient is not have any chest pain or shortness of breath at this time. She does state that her significant other is positive for COVID. She reports that she is not having any symptoms although she states that she feels "" brain fog. Review of Systems Constitutional: Denied any fatigue denied any fever. Cardio vascular: denied any chest pain, palpitations Gastrointestinal: denied any nausea, vomiting, diarrhea Pulmonary: Denied any shortness of breath cough Neurologic denied any new focal deficits All inpatient medications were reviewed and appropriate changes in these medications as dictated in the interval history and assessment and plan. PHYSICAL EXAMINATION: GENERAL: The patient is alert and oriented x3, not in any acute distress. Well developed, well nourished. HEENT: Pupils are round and equally reacting to light. EOMI. No scleral icterus. No conjunctival pallor. Normocephalic, atraumatic. No pharyngeal erythema. No thyromegaly. CARDIOVASCULAR: S1 and S2 present. No murmurs, rubs, or gallops. PULMONARY: Chest is clear to auscultation, no wheezing or crackles. ABDOMEN: Soft, nontender, nondistended, normoactive bowel sounds. No palpable organomegaly. MUSCULOSKELETAL: No joint swelling or deformity. EXTREMITIES: No cyanosis, clubbing, or pedal edema. NEUROLOGICAL: Gross neurological examination did not reveal any focal deficits. SKIN: No rashes. Assessment and plan , Palpitations: Sinus rhythm here patient will need Holter monitor which will need to be placed in the cardiology office on discharge. Echocardiogram is currently pending at this time -Elevated TSH normal T4 no goiter: Patient will follow-up with endocrinology as an outpatient -PTSD/depression/bipolar disorder for which patient was resumed on home medications DVT prophylaxis: Early ambulation Patient can discharge home tomorrow after echocardiogram and cardiac clearance. The impression and plan of care has been dictated by Melissa Alvarenga, Nurse Practitioner as directed. Dr. Zayra MD I have performed a history and physical examination and medical decision making of this patient, discussed the same with the dictator, and agree with the dictators assessment and plan as written, documented as a scribe. Based on total visit time, I have performed more than 50% of this visit. Objective - Vital Signs Vital signs: Vital Signs Temp 98.0 F 02/08/24 07:40 Pulse 68 02/08/24 07:40 Resp 16 02/08/24 07:40 BP 91/56 02/08/24 07:40 Pulse Ox 99 02/08/24 07:40 FiO2 Intake & Output 02/07/24 02/08/24 02/08/24 18:59 06:59 18:59 Intake Total 720 Balance 720 Intake: Oral 720 Other: # Voids 3 2 - Labs CBC & Chem 7: 02/06/24 14:43 02/06/24 14:43 Assessment and Plan Time with Patient: Less than 30
[2024-02-09 01:53] VITALS: RESP 16
[2024-02-09 07:25] VITALS: BP 135/66; PULSE 83; TEMP 98.4
--- NOTE | 2024-02-09 10:12 | CA ---
Transthoracic Echo Report Name: Sallie Fontanez Age: 58 Gender: F : 1965 Exam Date: 02/09/2024 08:12 Exam Location: [facility] Ht (in): 62 Wt (lb): 120 Ordering Physician: Navi Iverson MD Attending/Referring Phys: Outreach Specialist Elizabeth Howell RDCS Procedure CPT: Indications: PALPITATION Cardiac Hx: Technical Quality: Fair Contrast 1: Total Dose (mL): Contrast 2: Total Dose (mL): MEASUREMENTS (Male / Female) Normal Values 2D ECHO LV Diastolic Diameter PLAX 4.5 cm 4.2 - 5.9 / 3.9 - 5.3 cm LV Systolic Diameter PLAX 3.0 cm IVS Diastolic Thickness 1.0 cm 0.6 - 1.0 / 0.6 - 0.9 cm LVPW Diastolic Thickness 1.1 cm 0.6 - 1.0 / 0.6 - 0.9 cm LV Relative Wall Thickness 0.5 LVOT Diameter 2.0 cm LV Diastolic Volume MOD BP 79.4 cm??? 67 - 155 / 56 - 104 cm??? LV Systolic Volume MOD BP 35.8 cm??? 22 - 58 / 19 - 49 cm??? LV Ejection Fraction MOD BP 54.8 % >= 55 % LV Cardiac Index MOD BP 2307.2 cm???/min???m??? LV Diastolic Volume MOD 4C 88.5 cm??? LV Systolic Volume MOD 4C 38.4 cm??? LV Ejection Fraction MOD 4C 56.6 % LV Cardiac Index MOD 4C 2654.0 cm???/min???m??? LV Diastolic Length 4C 8.1 cm LV Systolic Length 4C 6.9 cm LV Diastolic Volume MOD 2C 71.2 cm??? LV Systolic Volume MOD 2C 31.6 cm??? LV Ejection Fraction MOD 2C 55.7 % LV Cardiac Index MOD 2C 2103.0 cm???/min???m??? LV Diastolic Length 2C 8.0 cm LV Systolic Length 2C 6.4 cm LA Volume 27.1 cm??? 18 - 58 / 22 - 52 cm??? LA Volume Index 17.5 cm???/m??? 16 - 28 cm???/m??? Ascending Aorta Diameter 3.6 cm DOPPLER AV Peak Velocity 161.2 cm/s AV Peak Gradient 10.4 mmHg AV Mean Velocity 104.7 cm/s AV Mean Gradient 5.0 mmHg AV Velocity Time Integral 30.9 cm LVOT Peak Velocity 107.9 cm/s LVOT Peak Gradient 4.7 mmHg LVOT Velocity Time Integral 24.2 cm LVOT Stroke Volume 73.3 cm??? LVOT Stroke Volume Index 47.6 ml/m??? LVOT Cardiac Index 3884.8 cm???/min???m??? AV Area Cont Eq vti 2.4 cm??? AV Area Cont Eq pk 2.0 cm??? MV Area PHT 3.5 cm??? Mitral E Point Velocity 55.9 cm/s Mitral A Point Velocity 75.6 cm/s Mitral E to A Ratio 0.7 MV Deceleration Time 216.3 ms PV Peak Velocity 84.4 cm/s PV Peak Gradient 2.8 mmHg FINDINGS Left Ventricle Left ventricular ejection fraction is estimated at 55-60 %. Mildly increased septal wall thickness. Mildly increased posterior wall thickness. Left ventricular cavity size normal. No obvious regional wall motion abnormalities. Right Ventricle Normal right ventricular size and function. Unable to estimate the right ventricular systolic pressure. Right Atrium Normal right atrial size. Left Atrium Normal left atrial size. Mitral Valve Structurally normal mitral valve. No evidence for mitral valve prolapse. No mitral stenosis. Trace mitral regurgitation. Aortic Valve Trileaflet aortic valve. No aortic stenosis. Mild aortic regurgitation. Tricuspid Valve Structurally normal tricuspid valve. No tricuspid stenosis. Trace tricuspid regurgitation. Pulmonic Valve Pulmonic valve not well visualized. No pulmonic stenosis. No pulmonic regurgitation. Pericardium No pericardial effusion. Aorta Normal size aortic root and proximal ascending aorta. CONCLUSIONS Normal LV systolic function Mild aortic regurgitation Previewed by: Dr. Don Persaud MD (Electronically Signed) Final Date: 09 February 2024 10:11
--- NOTE | 2024-02-09 11:52 | P.PN ---
Subjective HISTORY OF PRESENT ILLNESS: Patient examined this morning at the bedside. Patient currently denies chest pain or pressure. She denies shortness of breath. Vital signs are stable. Echocardiogram completed revealing ejection fraction 55 to 60%, trace MR, trace TR, mild AR PHYSICAL EXAM: VITAL SIGNS: Reviewed. GENERAL: Well-developed in no acute distress. NECK: Supple. No JVD or thyromegaly LUNGS: Respirations even and unlabored. Lungs essentially clear to auscultation bilaterally. HEART: Regular rate and rhythm. S1 and S2 heard. EXTREMITIES: Normal range of motion. No clubbing or cyanosis. Peripheral pulses intact. No lower extremity edema ASSESSMENT: Palpitations Hypothyroidism Anxiety PLAN: 2D echo obtained and reviewed No further inpatient recommendations from a cardiac standpoint Patient to receive event monitor at her follow-up appointment Patient may be discharged home today from a cardiology perspective We will sign off. Please reconsult if needed. Nurse practitioner note has been reviewed by physician. Signing provider agrees with the documented findings, assessment, and plan of care documented by FOREIGN EXCHANGE TRADER as a scribe. Objective - Vital Signs Vital signs: Vital Signs Temp 98.4 F 02/09/24 07:00 Pulse 83 02/09/24 07:00 Resp 16 02/09/24 07:00 BP 135/66 02/09/24 07:00 Pulse Ox 98 02/09/24 07:00 FiO2 Intake & Output 02/08/24 02/09/24 02/09/24 18:59 06:59 18:59 Intake Total 480 Balance 480 Intake: Oral 480 Other: Voiding Method Toilet # Voids 3 3 - Labs CBC & Chem 7: 02/06/24 14:43 02/06/24 14:43
--- NOTE | 2024-02-12 16:20 | P.DS ---
Providers Date of admission: 02/06/24 18:22 Attending physician: Dakota Quevedo Consults: 02/07/24 12:44 Consult Physician Routine Consulting Provider: Juan Antonio Ley Consult Reason/Comments: palpitations, holter monitor Do you want consulting provider notified?: Yes Primary care physician: Stated None Hospital Course: Date of service 02/09/2024 and discharge date 02/09/2024 Final Diagnosis -Palpitations: Sinus rhythm here patient will need Holter monitor which will need to be placed in the cardiology office on discharge. -Elevated TSH normal T4 no goiter: Patient will follow-up with endocrinology as an outpatient -PTSD/depression/bipolar disorder for which patient was resumed on home medications Discharge Disposition Stable for discharge home. Follow up with Cardiology in the office for placement of event monitor. Hospital Course 58-old female came with complaints of palpitation going on for about 6 months. EKG here is sinus rhythm rate controlled at [address]-T wave c hanges. Patient does have history of PTSD and anxiety disorder for which patient is on trazodone and Xanax. Patient urine drug screen is positive for marijuana. Patient denied any chest pain fever chills rest of the workup is all negative. Had TSH was less than 0.15 however free T4 is within normal limits. Echocardiogram was done revealing an EF of 55-60% with mild Aortic regurgitation. Patient is not having any chest pain or shortness of breath she will be discharged home and will be following with Dr. Ley in the office and to have an event monitor placed. Please see medication reconciliation for a list of current medications. Thank you for allowing us to participate in the care of this patient. The impression and plan of care has been dictated by Melissa Alvarenga, Nurse Practitioner as directed. Dr. Zayra MD I have performed a history and physical examination and medical decision making of this patient, discussed the same with the dictator, and agree with the dictators assessment and plan as written, documented as a scribe. Based on total visit time, I have performed more than 50% of this visi.t. Patient Condition at Discharge: Good Plan - Discharge Summary New Discharge Prescriptions: New Metoprolol Succinate (ER) [Toprol XL] 12.5 mg PO DAILY #15 tab Continue Biotin [Xfwe-Bkqn-Iikkt] 10,000 mcg PO DAILY Loratadine [Claritin] 10 mg PO DAILY Latanoprost Ophth [Xalatan 0.005%] 1 drop BOTH EYES HS Vitamin E (Dl,Tocopheryl Acet) [Vitamin E (400 Iu = 180 mg)] 400 unit PO DAILY Cyclobenzaprine [Flexeril] 5 mg PO TID ALPRAZolam [Xanax] 1 mg PO TID PRN PRN Reason: Anxiety Multivitamins, Thera [Multivitamin (formulary)] 1 tab PO DAILY Omeprazole [PriLOSEC] 20 mg PO DAILY Ascorbic Acid [Vitamin C] 1,000 mg PO DAILY Cholecalciferol (Vitamin D3) [Vitamin D3 (50 Mcg = 2000 Iu)] 50 mcg PO DAILY Aspirin EC [Ecotrin Low Dose] 81 mg PO DAILY traZODone HCL 100 mg PO HS Discharge Medication List Ascorbic Acid [Vitamin C] 1,000 mg PO DAILY 09/02/22 [History] Biotin [Gzxr-Bkud-Klrrh] 10,000 mcg PO DAILY 09/02/22 [History] Latanoprost Ophth [Xalatan 0.005%] 1 drop BOTH EYES HS 09/02/22 [History] Loratadine [Claritin] 10 mg PO DAILY 09/02/22 [History] Multivitamins, Thera [Multivitamin (formulary)] 1 tab PO DAILY 09/02/22 [History] Omeprazole [PriLOSEC] 20 mg PO DAILY 09/02/22 [History] ALPRAZolam [Xanax] 1 mg PO TID PRN 02/06/24 [History] Aspirin EC [Ecotrin Low Dose] 81 mg PO DAILY 02/06/24 [History] Cholecalciferol (Vitamin D3) [Vitamin D3 (50 Mcg = 2000 Iu)] 50 mcg PO DAILY 02/06/24 [History] Cyclobenzaprine [Flexeril] 5 mg PO TID 02/06/24 [History] Vitamin E (Dl,Tocopheryl Acet) [Vitamin E (400 Iu = 180 mg)] 400 unit PO DAILY 02/06/24 [History] traZODone HCL 100 mg PO HS 02/06/24 [History] Metoprolol Succinate (ER) [Toprol XL] 12.5 mg PO DAILY #15 tab 02/08/24 [Rx] Follow up Appointment(s)/Referral(s): Juan Antonio Ley MD [STAFF PHYSICIAN] - 1-2 Days (Office will call patient with appointment ) Kailash Dunlap MD [REFERRING] - 1 Week (Patient needs to get referral from PCP ) Sirisha Levin MD [STAFF PHYSICIAN] - 1 Week None,Stated [Primary Care Provider] - 1-2 days Activity/Diet/Wound Care/Special Instructions: Follow up with Dr Ley in 1 to 2 days. [facility] for event monitor on discharge. Discharge Disposition: HOME SELF-CARE
== END 2024-02-09 12:27 | disposition home or self-care (01) ==
LOC: EC 14:08 → 6NMEDSUR 18:22
PROVIDERS: ADMIT Hospitalist; ATTEND Hospitalist
DX: E05.90 Thyrotoxicosis, unspecified without thyrotoxic crisis or storm (principal); E03.9 Hypothyroidism, unspecified; R01.1 Cardiac murmur, unspecified; F43.10 Post-traumatic stress disorder, unspecified; F41.1 Generalized anxiety disorder; F12.10 Cannabis abuse, uncomplicated; F31.9 Bipolar disorder, unspecified; Z79.82 Long term (current) use of aspirin; Z79.899 Other long term (current) drug therapy; Z88.1 Allergy status to other antibiotic agents; Z88.2 Allergy status to sulfonamides; Z88.8 Allergy status to other drugs, medicaments and biological substances
CPT/HCPCS: 99285; 36415; 93005; 93306; 84439 ×2; 84481; 80053; 83735; 84443; 84484; 85025; 85610; 85730; 80306; 87635; 71046; G0378 ×4

== ENCOUNTER → 2024-02-12 | Outpatient (CLI) | payer OTHER ==
[2024-02-12 19:22] LABS: Basophils # (A) 0.04 X 10*3/uL (0.00-0.10); Basophils % (A) 0.8 %; HCT 45.7 % (37.2-46.3); HGB 15.2 g/dL (12.0-15.0); Lymphocytes % (A) 19.8 %; MCH 28.9 pg (27.0-32.0); MCHC 33.3 g/dL (32.0-37.0); MCV 86.9 FL (80.0-97.0); Mean Platelet Volume 9.4 FL (9.5-12.2); Monocytes # (A) 0.39 X 10*3/uL (0.20-1.00); Monocytes % (A) 7.7 %; NRBC Per 100 WBC 0 X 10*3/uL (0.00-0.01); Neutrophils # (A) 3.49 X 10*3/uL (1.80-7.70); Neutrophils % (A) 69.1 %; Platelet Count 223 X 10*3/uL (140-440); RBC 5.26 X 10*6/uL (4.10-5.20); WBC 5.05 X 10*3/uL (4.50-10.00)
[2024-02-12 19:36] LABS: Hepatitis B Surface Antigen Nonreactive (Nonreactive); Hepatitis C IgG Antibody Nonreactive (Nonreactive); Thyroid Peroxidase Antibodies 24.2 U/mL (0.0-33.0)
[2024-02-12 21:27] LABS: HIV 2 AB Non-Reactive (Non-Reactive); HIV AB P24 Non-Reactive (Non-Reactive); HIV P24 AG Non-Reactive (Non-Reactive)
[2024-02-13 07:26] LABS: T4, Free (Free Thyroxine) 1.36 ng/dL (0.80-1.80)
== END | disposition home or self-care (01) ==
LOC: LABWHC1 12:49
PROVIDERS: ATTEND Family Medicine
DX: Z12.2 Encounter for screening for malignant neoplasm of respiratory organs (principal); Z12.31 Encounter for screening mammogram for malignant neoplasm of breast; R00.2 Palpitations; F41.9 Anxiety disorder, unspecified; R94.6 Abnormal results of thyroid function studies; Z09 Encounter for follow-up examination after completed treatment for conditions other than malignant neoplasm
CPT/HCPCS: 36415; 83036; 84432; 84439; 84443; 84445; 84481; 85025; 86376; 86780; 86803; 87340; 87390; 87522

== ENCOUNTER 2024-03-02 12:23 | Emergency (ER) | payer OTHER ==
[2024-03-02 12:45] VITALS: RESP 16
[2024-03-02 14:47] LABS: Basophils % (A) 0 %; Eosinophils # (A) 0.2 k/uL (0-0.7); Eosinophils % (A) 2 %; HCT 44.3 % (34.0-46.0); Lymphocytes # (A) 2.9 k/uL (1.0-4.8); Lymphocytes % (A) 31 %; MCH 30.3 pg (25.0-35.0); MCHC 33.8 g/dL (31.0-37.0); MCV 89.7 fL (80.0-100.0); Mean Platelet Volume 6.5; Monocytes # (A) 0.5 k/uL (0-1.0); Monocytes % (A) 5 %; Neutrophils # (A) 5.6 k/uL (1.3-7.7); Neutrophils % (A) 60 %; Platelet Count 247 k/uL (150-450); RBC 4.94 m/uL (3.80-5.40); RDW 12.6 % (11.5-15.5); WBC 9.4 k/uL (3.8-10.6)
[2024-03-02 14:51] LABS: Appearance,Urine Clear (Clear); Bilirubin,Urine Negative (Negative); Blood,Urine Negative (Negative); Color,Urine Light Yellow; Glucose,Urine (UA) Negative (Negative); Ketones,Urine Negative (Negative); Leukocyte Esterase,Urine Negative (Negative); Nitrite,Urine Negative (Negative); PH, Urine 5.5 (5.0-8.0); Protein,Urine Negative (Negative); Specific Gravity,Urine 1.009 (1.001-1.035); Urobilinogen,Urine <2.0 mg/dL (<2.0)
[2024-03-02 14:54] LABS: ALT 16 U/L (4-34); AST 24 U/L (14-36); African American GFR (CKD) >90 (>60 ml/min/1.73 sqM); Albumin 4.7 g/dL (3.5-5.0); Alkaline Phosphatase 48 U/L (38-126); Anion Gap 10 mmol/L; Blood Urea Nitrogen 5 mg/dL (7-17); Calcium 9.6 mg/dL (8.4-10.2); Carbon Dioxide 25 mmol/L (22-30); Chloride 107 mmol/L (98-107); Glucose 91 mg/dL (74-99); Non-African American GFR(CKD) >90 (>60 ml/min/1.73 sqM); Potassium 3.8 mmol/L (3.5-5.1); Sodium 142 mmol/L (137-145); Total Bilirubin 0.4 mg/dL (0.2-1.3); Total Protein 7.2 g/dL (6.3-8.2)
[2024-03-02 15:01] LABS: Amphetamine Screen,Urine Not Detected (NotDetected); Benzodiazepines Screen,Urine Detected (NotDetected); Cocaine Screen,Urine Not Detected (NotDetected); Methadone Screen, Urine Not Detected (NotDetected); Opiate Screen,Urine Not Detected (NotDetected); Phencyclidine Screen,Urine Not Detected (NotDetected); Tricyclic Antidepressant,Urine Not Detected (NotDetected); Urn Cannabinoid Scrn Detected (NotDetected)
[2024-03-02 15:02] LABS: Barbiturate Screen,Urine Not Detected (NotDetected); Oxycodone Screen, Urine Not Detected (NotDetected)
--- NOTE | 2024-03-02 15:57 | ED ---
General Adult HPI - General Chief complaint: Recheck/Abnormal Lab/Rx Stated complaint: thyroid issue Time Seen by Provider: 03/02/24 12:58 Source: patient, RN notes reviewed Mode of arrival: ambulatory Limitations: no limitations - History of Present Illness Initial comments: 58-year-old female presents to the emergency department for evaluation of hair loss, mood swings, weight fluctuations. Patient reports that the symptoms have been ongoing multiple months. Patient reports that she wants her thyroid checked. She states that she has had issues with thyroid recently and is not currently on medication for this. She denies recent fever, chills. Denies palpitations, chest pain. - Related Data Home Medications Medication Instructions Recorded Confirmed Ascorbic Acid [Vitamin C] 1,000 mg PO DAILY 09/02/22 02/06/24 Biotin [Dvdp-Cebn-Dsjbs] 10,000 mcg PO DAILY 09/02/22 02/06/24 Latanoprost Ophth [Xalatan 0.005%] 1 drop BOTH EYES HS 09/02/22 02/06/24 Loratadine [Claritin] 10 mg PO DAILY 09/02/22 02/06/24 Multivitamins, Thera [Multivitamin 1 tab PO DAILY 09/02/22 02/06/24 (formulary)] Omeprazole [PriLOSEC] 20 mg PO DAILY 09/02/22 02/06/24 ALPRAZolam [Xanax] 1 mg PO TID PRN 02/06/24 02/06/24 Aspirin EC [Ecotrin Low Dose] 81 mg PO DAILY 02/06/24 02/06/24 Cholecalciferol (Vitamin D3) 50 mcg PO DAILY 02/06/24 02/06/24 [Vitamin D3 (50 Mcg = 2000 Iu)] Cyclobenzaprine [Flexeril] 5 mg PO TID 02/06/24 02/06/24 Vitamin E (Dl,Tocopheryl Acet) 400 unit PO DAILY 02/06/24 02/06/24 [Vitamin E (400 Iu = 180 mg)] traZODone HCL 100 mg PO HS 02/06/24 02/06/24 Previous Rx's Medication Instructions Recorded Metoprolol Succinate (ER) [Toprol 12.5 mg PO DAILY #15 tab 02/08/24 XL] Allergies Allergy/AdvReac Type Severity Reaction Status Date / Time olanzapine [From Zyprexa] Allergy Unknown Verified 03/02/24 12:43 quetiapine [From Seroquel] Allergy Hallucinati Verified 03/02/24 12:43 ons sertraline [From Zoloft] Allergy Unknown Verified 03/02/24 12:43 sulfamethoxazole Allergy Rash/Hives Verified 03/02/24 12:43 [From Bactrim] trimethoprim [From Bactrim] Allergy Rash/Hives Verified 03/02/24 12:43 Review of Systems ROS Statement: Those systems with pertinent positive or pertinent negative responses have been documented in the HPI. ROS Other: All systems not noted in ROS Statement are negative. Past Medical History Past Medical History: Eye Disorder Additional Past Medical History / Comment(s): prolapsed uterus, hypotension. glaucoma History of Any Multi-Drug Resistant Organisms: None Reported Past Surgical History: Cholecystectomy, Tonsillectomy, Tubal Ligation Additional Past Surgical History / Comment(s): colonoscopy Past Anesthesia/Blood Transfusion Reactions: No Reported Reaction Past Psychological History: ADD/ADHD, Anxiety, Bipolar, Depression, PTSD Smoking Status: Vaper Past Alcohol Use History: Occasional Past Drug Use History: Marijuana, Prescription Drug Abuse - Past Family History Father Family Medical History: Unable to Obtain Mother Family Medical History: Unable to Obtain General Exam Limitations: no limitations General appearance: alert, in no apparent distress Head exam: Present: atraumatic, normocephalic, normal inspection Eye exam: Present: normal appearance, PERRL, EOMI. Absent: scleral icterus, conjunctival injection, periorbital swelling ENT exam: Present: normal exam, mucous membranes moist Neck exam: Present: normal inspection. Absent: tenderness, meningismus, lymphadenopathy Respiratory exam: Present: normal lung sounds bilaterally. Absent: respiratory distress, wheezes, rales, rhonchi, stridor Cardiovascular Exam: Present: regular rate, normal rhythm, normal heart sounds. Absent: systolic murmur, diastolic murmur, rubs, gallop, clicks Extremities exam: Present: normal inspection, full ROM, normal capillary refill. Absent: tenderness, pedal edema, joint swelling, calf tenderness Neurological exam: Present: alert, oriented X3 Psychiatric exam: Present: normal affect, normal mood Skin exam: Present: warm, dry, intact, normal color. Absent: rash Course Vital Signs 03/02/24 03/02/24 12:43 16:04 Temperature 98.3 F 98.1 F Pulse Rate 93 89 Respiratory 16 16 Rate Blood Pressure 123/77 120/86 O2 Sat by Pulse 97 98 Oximetry Medical Decision Making - Medical Decision Making Was pt. sent in by a medical professional or institution (KEN Valdez, [facility], urgent care, hospital, or prison...) When possible be specific @ -No Did you speak to anyone other than the patient for history (EMS, parent, family, police, friend...)? What history was obtained from this source @ -No Did you review nursing and triage notes (agree or disagree)? Why? @ -I reviewed and agree with nursing and triage notes Were old charts reviewed (outside hosp., previous admission, EMS record, old EKG, old radiological studies, urgent care reports/EKG's, prison records)? Report findings @ -No old charts were reviewed Differential Diagnosis (chest pain, altered mental status, abdominal pain women, abdominal pain men, vaginal bleeding, weakness, fever, dyspnea, syncope, head ache, dizziness, GI bleed, back pain, seizure, CVA, palpatations, mental health, musculoskeletal)? @ -Differential Weakness: Hypoglycemia, shock, sepsis, hyponatremia, anemia, infection, [place], ETOH, adverse medicine reaction, overdose, stroke, this is not meant to be an all-inclusive list. EKG interpreted by me (3pts min.). @ -None X-rays interpreted by me (1pt min.). @ -None done CT interpreted by me (1pt min.). @ -None done U/S interpreted by me (1pt. min.). @ -None done What testing was considered but not performed or refused? (CT, X-rays, U/S, labs)? Why? @ -None What meds were considered but not given or refused? Why? @ -None Did you discuss the management of the patient with other professionals (professionals i.e. KEN Valdez, [employer], lab, RT, psych nurse, clinical social worker, esthetician permanent makeup artist, teacher, first officer and flight instructor, case management manager)? Give summary @ -No Was smoking cessation discussed for >3mins.? @ -No Was critical care preformed (if so, how long)? @ -No Were there social determinants of health that impacted care today? How? (Homelessness, low income, unemployed, alcoholism, drug addiction, t ransportation, low edu. Level, literacy, decrease access to med. care, snf, rehab)? @ -No Was there de-escalation of care discussed even if they declined (Discuss DNR or withdrawal of care, Hospice)? DNR status @ -No What co-morbidities impacted this encounter? (DM, HTN, Smoking, COPD, CAD, Cance r, CVA, ARF, Chemo, Hep., AIDS, mental health diagnosis, sleep apnea, morbid obesity)? @ -None Was patient admitted / discharged? Hospital course, mention meds given and route, prescriptions, significant lab abnormalities, going to OR and other pertinent info. @ -Discharge. Patient presented emergency department for multiple complaints. Laboratory studies were obtained There is no significant leukocytosis, hemoglobin stable; CMP essentially unremarkable, TSH within normal limits at 0.634. UA shows no evidence of infectious process. Urine drug screen positive for benzos and marijuana which she did admit to. Advised patient on findings and she will be discharged home. She is understanding agreeable with plan. Patient stable at time of discharge. Case discussed with Dr. Vicente Undiagnosed new problem with uncertain prognosis? @ -No Drug Therapy requiring intensive monitoring for toxicity (Heparin, Nitro, Insulin, Cardizem)? @ -No Were any procedures done? @ -No Diagnosis/symptom? @ -Weakness Acute, or Chronic, or Acute on Chronic? @ -Acute Uncomplicated (without systemic symptoms) or Complicated (systemic symptoms)? @ -Uncomplicated Side effects of treatment? @ -No Exacerbation, Progression, or Severe Exacerbation? @ -No Poses a threat to life or bodily function? How? (Chest pain, [place], [place], pneumonia, PE, COPD, DKA, ARF, appy, cholecystitis, CVA, Diverticulitis, Homicidal, Suicidal, threat to staff... and all critical care pts) @ -No - Lab Data Result diagrams: 03/02/24 14:29 03/02/24 14:29 Lab Results 03/02/24 03/02/24 03/02/24 Range/Units 14:29 14:29 14:29 WBC 9.4 (3.8-10.6) k/uL RBC 4.94 (3.80-5.40) m/uL Hgb 15.0 (11.4-16.0) gm/dL Hct 44.3 (34.0-46.0) % MCV 89.7 (80.0-100.0) fL MCH 30.3 (25.0-35.0) pg MCHC 33.8 (31.0-37.0) g/dL RDW 12.6 (11.5-15.5) % Plt Count 247 (150-450) k/uL MPV 6.5 Neutrophils % 60 % Lymphocytes % 31 % Monocytes % 5 % Eosinophils % 2 % Basophils % 0 % Neutrophils # 5.6 (1.3-7.7) k/uL Lymphocytes # 2.9 (1.0-4.8) k/uL Monocytes # 0.5 (0-1.0) k/uL Eosinophils # 0.2 (0-0.7) k/uL Basophils # 0.0 (0-0.2) k/uL Sodium 142 (137-145) mmol/L Potassium 3.8 (3.5-5.1) mmol/L Chloride 107 (98-107) mmol/L Carbon Dioxide 25 (22-30) mmol/L Anion Gap 10 mmol/L BUN 5 L (7-17) mg/dL Creatinine 0.68 (0.52-1.04) mg/dL Est GFR (CKD-EPI)AfAm >90 (>60 ml/min/1.73 sqM) Est GFR (CKD-EPI)NonAf >90 (>60 ml/min/1.73 sqM) Glucose 91 (74-99) mg/dL Calcium 9.6 (8.4-10.2) mg/dL Total Bilirubin 0.4 (0.2-1.3) mg/dL AST 24 (14-36) U/L ALT 16 (4-34) U/L Alkaline Phosphatase 48 (38-126) U/L Total Protein 7.2 (6.3-8.2) g/dL Albumin 4.7 (3.5-5.0) g/dL TSH 0.634 (0.465-4.680) mIU/L Urine Color Light Yellow Urine Appearance Clear (Clear) Urine pH 5.5 (5.0-8.0) Ur Specific [place] 1.009 (1.001-1.035) Urine Protein Negative (Negative) Urine Glucose (UA) Negative (Negative) Urine Ketones Negative (Negative) Urine Blood Negative (Negative) Urine Nitrite Negative (Negative) Urine Bilirubin Negative (Negative) Urine Urobilinogen <2.0 (<2.0) mg/dL Ur Leukocyte Esterase Negative (Negative) Urine Opiates Screen Not Detected (NotDetected) Ur Oxycodone Screen Not Detected (NotDetected) Urine Methadone Screen Not Detected (NotDetected) Ur Barbiturates Screen Not Detected (NotDetected) U Tricyclic Antidepress Not Detected (NotDetected) Ur Phencyclidine Scrn Not Detected (NotDetected) Ur Amphetamines Screen Not Detected (NotDetected) U Methamphetamines Scrn Not Detected (NotDetected) U Benzodiazepines Scrn Detected H (NotDetected) Urine Cocaine Screen Not Detected (NotDetected) U Marijuana (THC) Screen Detected H (NotDetected) Disposition Clinical Impression: Weakness Disposition: HOME SELF-CARE Condition: Stable Instructions (If sedation given, give patient instructions): Weakness (ED) Additional Instructions: Please follow up with your primary care provider. Return to the emergency department for new or worsening symptoms. Is patient prescribed a controlled substance at d/c from ED?: No Referrals: Sirisha Levin MD [Primary Care Provider] - 1-2 days
[2024-03-02 16:06] VITALS: BP 120/86; PULSE 89; TEMP 98.1
== END 2024-03-02 16:08 | disposition home or self-care (01) ==
LOC: EC 12:23
DX: R53.1 Weakness (principal); F17.290 Nicotine dependence, other tobacco product, uncomplicated; Z88.2 Allergy status to sulfonamides; Z88.8 Allergy status to other drugs, medicaments and biological substances
CPT/HCPCS: 36415; 80053; 80306; 81003; 84443; 85025; 99283

== ENCOUNTER → 2024-03-02 | Outpatient (CLI) | payer OTHER ==
--- NOTE | 2024-03-02 13:31 | MR ---
EXAMINATION TYPE: MR cervical spine wo con DATE OF EXAM: 03/02/2024 12:06 PM COMPARISON: None. CLINICAL INDICATION: Female, 58 years old with history of M48.02, M47.812, M54.12, Neck pain into eddie upper extremities TECHNIQUE: Multiplanar, multisequence images of the cervical spine were acquired without contrast. FINDINGS: No craniocervical junction abnormality, predental space widening, or prevertebral soft tissue swellin g. Reversal of the normal cervical lordosis. Otherwise preserved alignment. There is moderate disc/degenerative change particularly from C5 through C7 levels with desiccated, na rrowed, and bulging disc. Additional ligamentum flavum especially C6-C7. Mild edematous Modic type I endplate change C6-C7. Moderate to severe hypertrophic facet and uncovertebral joint arthropathy mid to lower cervical spine . Disc osteophyte complex at C5-C6 contributes to moderate spinal canal stenosis with abutment of both the dorsal and ventral cord and ventral cord indentation. Disc osteophyte complex and ligamentum flavum thickening at C6-C7 contributes to moderate spinal shawnee l stenosis with abutment of both the dorsal and ventral cord and minimal ventral cord indentation. There is some artifact projecting over the cervical cord but no definite myelopathic cord signal frey ge when correlating with axial images. C5-C6, moderate hypertrophic facet and uncovertebral joint arthropathy contributes to moderate left a nd mild right neuroforaminal stenosis. At C6-C7, moderate to severe hypertrophic facet and uncovertebral joint arthropathy on the left contr ibutes to a moderate to severe left neuroforaminal stenosis. Mild right neuroforaminal stenosis. 4 mm left apical pulmonary nodule seen on coronal series. Three-month follow-up CT chest to reassess. IMPRESSION: 1. Moderate disc/endplate degenerative change especially C5-C6 and C6-C7 along with mild ligamentum f lavum thickening. Disc osteophyte complexes here contribute to moderate spinal canal stenoses with ab utment of both the dorsal and ventral cord and with ventral cord indentation. No definite myelopathic cord signal change when correlating with axial images. 2. Hypertrophic facet and uncovertebral joint arthropathy especially mid to lower cervical spine. Shanel nges result in moderate to severe left neuroforaminal stenosis at C6-C7 and moderate on the left at C 5-C6. 3. Three-month follow-up CT chest to reassess a 4 mm left apical pulmonary nodule. [facility], , 03/02/2024 1:28 PM
== END | disposition home or self-care (01) ==
LOC: RADMRIMAIN 11:15
PROVIDERS: ATTEND Orthopaedic Surgery
DX: M47.22 Other spondylosis with radiculopathy, cervical region (principal); M48.02 Spinal stenosis, cervical region; M25.78 Osteophyte, vertebrae; R91.1 Solitary pulmonary nodule
CPT/HCPCS: 72141

== ENCOUNTER 2024-03-18 13:41 | Emergency (ER) | payer OTHER ==
[2024-03-18 13:48] VITALS: TEMP 97.5
--- NOTE | 2024-03-18 14:22 | ED ---
Nausea/Vomiting/Diarrhea HPI - General Chief complaint: Nausea/Vomiting/Diarrhea Stated complaint: vomiting Time Seen by Provider: 03/18/24 14:19 Source: patient, RN notes reviewed Mode of arrival: wheelchair Limitations: no limitations - History of Present Illness Initial comments: 58-year-old female presenting to the ER for nausea/vomiting/diarrhea x 1 day. Admits intermittent abdominal cramping associated with the vomiting and the diarrhea. Denies fever, chest pain, shortness of breath, blood in stool. States she believes she is having the symptoms because she drank vodka yesterday and she also takes Xanax for anxiety which she was told not to do. History of cholecystectomy, does not endorse any other previous abdominal surgeries. - Related Data Home Medications Medication Instructions Recorded Confirmed Ascorbic Acid [Vitamin C] 1,000 mg PO DAILY 09/02/22 02/06/24 Biotin [Xcgt-Axkk-Slglu] 10,000 mcg PO DAILY 09/02/22 02/06/24 Latanoprost Ophth [Xalatan 0.005%] 1 drop BOTH EYES HS 09/02/22 02/06/24 Loratadine [Claritin] 10 mg PO DAILY 09/02/22 02/06/24 Multivitamins, Thera [Multivitamin 1 tab PO DAILY 09/02/22 02/06/24 (formulary)] Omeprazole [PriLOSEC] 20 mg PO DAILY 09/02/22 02/06/24 ALPRAZolam [Xanax] 1 mg PO TID PRN 02/06/24 02/06/24 Aspirin EC [Ecotrin Low Dose] 81 mg PO DAILY 02/06/24 02/06/24 Cholecalciferol (Vitamin D3) 50 mcg PO DAILY 02/06/24 02/06/24 [Vitamin D3 (50 Mcg = 2000 Iu)] Cyclobenzaprine [Flexeril] 5 mg PO TID 02/06/24 02/06/24 Vitamin E (Dl,Tocopheryl Acet) 400 unit PO DAILY 02/06/24 02/06/24 [Vitamin E (400 Iu = 180 mg)] traZODone HCL 100 mg PO HS 02/06/24 02/06/24 Previous Rx's Medication Instructions Recorded Metoprolol Succinate (ER) [Toprol 12.5 mg PO DAILY #15 tab 02/08/24 XL] Allergies Allergy/AdvReac Type Severity Reaction Status Date / Time olanzapine [From Zyprexa] Allergy Unknown Verified 03/18/24 13:43 quetiapine [From Seroquel] Allergy Hallucinati Verified 03/18/24 13:43 ons sertraline [From Zoloft] Allergy Unknown Verified 03/18/24 13:43 sulfamethoxazole Allergy Rash/Hives Verified 03/18/24 13:43 [From Bactrim] trimethoprim [From Bactrim] Allergy Rash/Hives Verified 03/18/24 13:43 Review of Systems ROS Statement: Those systems with pertinent positive or pertinent negative responses have been documented in the HPI. ROS Other: All systems not noted in ROS Statement are negative. Past Medical History Past Medical History: Eye Disorder Additional Past Medical History / Comment(s): prolapsed uterus, hypotension. glaucoma History of Any Multi-Drug Resistant Organisms: None Reported Past Surgical History: Cholecystectomy, Tonsillectomy, Tubal Ligation Additional Past Surgical History / Comment(s): colonoscopy Past Anesthesia/Blood Transfusion Reactions: No Reported Reaction Past Psychological History: ADD/ADHD, Anxiety, Bipolar, Depression, PTSD Smoking Status: Vaper Past Alcohol Use History: Occasional Past Drug Use History: Marijuana, Prescription Drug Abuse - Past Family History Father Family Medical History: Unable to Obtain Mother Family Medical History: Unable to Obtain General Exam Limitations: no limitations General appearance: alert, in no apparent distress Head exam: Present: atraumatic, normocephalic, normal inspection Eye exam: Present: normal appearance, PERRL, EOMI. Absent: scleral icterus, conjunctival injection, periorbital swelling Respiratory exam: Present: normal lung sounds bilaterally. Absent: respiratory distress, wheezes, rales, rhonchi, stridor Cardiovascular Exam: Present: regular rate, normal rhythm, normal heart sounds. Absent: systolic murmur, diastolic murmur, rubs, gallop, clicks GI/Abdominal exam: Present: soft, normal bowel sounds. Absent: distended, tenderness, guarding, rebound, rigid Neurological exam: Present: alert, oriented X3 Psychiatric exam: Present: normal affect, normal mood. Absent: homicidal ideation, suicidal ideation Skin exam: Present: warm, dry, intact, normal color. Absent: rash Course Vital Signs 03/18/24 03/18/24 03/18/24 13:43 14:51 18:00 Temperature 97.5 F L Pulse Rate 97 86 Respiratory 18 16 16 Rate Blood Pressure 149/84 141/100 O2 Sat by Pulse 99 98 Oximetry Medical Decision Making - Medical Decision Making Was pt. sent in by a medical professional or institution (, K[facility], [employer]ECUT[employer], urgent care, hospital, or fpc...) When possible be specific @ -No Did you speak to anyone other than the patient for history (EMS, parent, family, police, friend...)? What history was obtained from this source @ -No Did you review nursing and triage notes (agree or disagree)? Why? @ -I reviewed and agree with nursing and triage notes Were old charts reviewed (outside hosp., previous admission, EMS record, old EKG, old radiological studies, urgent care reports/EKG's, fpc records)? Report findings @ -No old charts were reviewed Differential Diagnosis (chest pain, altered mental status, abdominal pain women, abdominal pain men, vaginal bleeding, weakness, fever, dyspnea, syncope, headache, dizziness, GI bleed, back pain, seizure, CVA, palpatations, mental health, musculoskeletal)? @ -Differential Abdominal Pain Women: Appendicitis, Cholecystitis, diverticulosis, ischemic bowel, pancreatitis, hepatitis, UTI, gastroenteritis, AAA, incarcerated hernia, bowel obstruction, constipation, inflammatory bowel, hepatitis, peptic ulcer disease, splenic infarction, perforated viscus, vulvitis, ovarian torsion, PID, kidney stone, placenta abruption, this is not meant to be an all-inclusive list EKG interpreted by me (3pts min.). @ -None X-rays interpreted by me (1pt min.). @ -None done CT interpreted by me (1pt min.). @ -None done U/S interpreted by me (1pt. min.). @ -None done What testing was considered but not performed or refused? (CT, X-rays, U/S, labs)? Why? @ -None What meds were considered but not given or refused? Why? @ -None Did you discuss the management of the patient with other professionals (professionals i.e. KEN Valdez, EXECUTIVE VP, lab, RT, psych nurse, social media director, pad machine feeder, teacher, traffic officer, business case analyst)? Give summary @ -No Was smoking cessation discussed for >3mins.? @ -No Was critical care preformed (if so, how long)? @ -No Were there social determinants of health that impacted care today? How? (Homelessness, low income, unemployed, alcoholism, drug addiction, transportation, low edu. Level, literacy, decrease access to med. care, skilled nursing, rehab)? @ -No Was there de-escalation of care discussed even if they declined (Discuss DNR or withdrawal of care, Hospice)? DNR status @ -No What co-morbidities impacted this encounter? (DM, HTN, Smoking, COPD, CAD, [place], CVA, ARF, Chemo, Hep., AIDS, mental health diagnosis, sleep apnea, morbid obesity)? @ -None Was patient admitted / discharged? Hospital course, mention meds given and route, prescriptions, significant lab abnormalities, going to OR and other pertinent info. @ -Discharge. This is a 58-year-old female presenting with nausea/vomiting/diarrhea x 1 day. Vital signs within acceptable limits. Abd omen soft and nontender. Patient is provided with IV fluid bolus and antiemetics. Lab work largely unremarkable. No leukocytosis or lactic acidosis. Urinalysis remarkable for 1+ ketones. Upon reevaluation, patient reports significant improvement of symptoms and feel stable for discharge. I suspect symptoms are due to viral gastroenteritis at this time. Appropriate return precautions and follow-up/supportive care discussed. Case was discussed with my ED attending Dr. Ivory. Undiagnosed new problem with uncertain prognosis? @ -No Drug Therapy requiring intensive monitoring for toxicity (Heparin, Nitro, Insulin, Cardizem)? @ -No Were any procedures done? @ -No Diagnosis/symptom? @ -Viral gastroenteritis Acute, or Chronic, or Acute on Chronic? @ -Acute Uncomplicated (without systemic symptoms) or Complicated (systemic symptoms)? @ -Uncomplicated Side effects of treatment? @ -No Exacerbation, Progression, or Severe Exacerbation? @ -No Poses a threat to life or bodily function? How? (Chest pain, [place], [place], pneumonia, PE, COPD, DKA, ARF, appy, cholecystitis, CVA, Diverticulitis, Homicidal, Suicidal, threat to staff... and all critical care pts) @ -No - Lab Data Result diagrams: 03/18/24 14:51 03/18/24 14:51 Lab Results 03/18/24 03/18/24 03/18/24 Range/Units 14:51 14:51 14:51 WBC 9.8 (3.8-10.6) k/uL RBC 4.87 (3.80-5.40) m/uL Hgb 14.4 (11.4-16.0) gm/dL Hct 43.0 (34.0-46.0) % MCV 88.4 (80.0-100.0) fL MCH 29.6 (25.0-35.0) pg MCHC 33.5 (31.0-37.0) g/dL RDW 12.6 (11.5-15.5) % Plt Count 222 (150-450) k/uL MPV 6.5 Neutrophils % 85 % Lymphocytes % 9 % Monocytes % 3 % Eosinophils % 1 % Basophils % 0 % Neutrophils # 8.3 H (1.3-7.7) k/uL Lymphocytes # 0.9 L (1.0-4.8) k/uL Monocytes # 0.3 (0-1.0) k/uL Eosinophils # 0.1 (0-0.7) k/uL Basophils # 0.0 (0-0.2) k/uL Sodium 137 (137-145) mmol/L Potassium 3.5 (3.5-5.1) mmol/L Chloride 104 (98-107) mmol/L Carbon Dioxide 25 (22-30) mmol/L Anion Gap 8 mmol/L BUN 6 L (7-17) mg/dL Creatinine 0.62 (0.52-1.04) mg/dL Est GFR (CKD-EPI)AfAm >90 (>60 ml/min/1.73 sqM) Est GFR (CKD-EPI)NonAf >90 (>60 ml/min/1.73 sqM) Glucose 94 (74-99) mg/dL Plasma Lactic Acid [place] 1.1 (0.7-2.0) mmol/L Calcium 9.5 (8.4-10.2) mg/dL Magnesium 1.9 (1.6-2.3) mg/dL Total Bilirubin 0.5 (0.2-1.3) mg/dL AST 28 (14-36) U/L ALT 19 (4-34) U/L Alkaline Phosphatase 51 (38-126) U/L Total Protein 7.6 (6.3-8.2) g/dL Albumin 4.6 (3.5-5.0) g/dL Lipase 79 (23-300) U/L Urine Color Urine Appearance (Clear) Urine pH (5.0-8.0) Ur Specific [place] (1.001-1.035) Urine Protein (Negative) Urine Glucose (UA) (Negative) Urine Ketones (Negative) Urine Blood (Negative) Urine Nitrite (Negative) Urine Bilirubin (Negative) Urine Urobilinogen (<2.0) mg/dL Ur Leukocyte Esterase (Negative) Urine Opiates Screen (NotDetected) Ur Oxycodone Screen (NotDetected) Urine Methadone Screen (NotDetected) Ur Barbiturates Screen (NotDetected) U Tricyclic Antidepress (NotDetected) Ur Phencyclidine Scrn (NotDetected) Ur Amphetamines Screen (NotDetected) U Methamphetamines Scrn (NotDetected) U Benzodiazepines Scrn (NotDetected) Urine Cocaine Screen (NotDetected) U Marijuana (THC) Screen (NotDetected) Serum Alcohol <10 mg/dL 03/18/24 Range/Units 18:14 WBC (3.8-10.6) k/uL RBC (3.80-5.40) m/uL Hgb (11.4-16.0) gm/dL Hct (34.0-46.0) % MCV (80.0-100.0) fL MCH (25.0-35.0) pg MCHC (31.0-37.0) g/dL RDW (11.5-15.5) % Plt Count (150-450) k/uL MPV Neutrophils % % Lymphocytes % % Monocytes % % Eosinophils % % Basophils % % Neutrophils # (1.3-7.7) k/uL Lymphocytes # (1.0-4.8) k/uL Monocytes # (0-1.0) k/uL Eosinophils # (0-0.7) k/uL Basophils # (0-0.2) k/uL Sodium (137-145) mmol/L Potassium (3.5-5.1) mmol/L Chloride (98-107) mmol/L Carbon Dioxide (22-30) mmol/L Anion Gap mmol/L BUN (7-17) mg/dL Creatinine (0.52-1.04) mg/dL Est GFR (CKD-EPI)AfAm (>60 ml/min/1.73 sqM) Est GFR (CKD-EPI)NonAf (>60 ml/min/1.73 sqM) Glucose (74-99) mg/dL Plasma Lactic Acid [place] (0.7-2.0) mmol/L Calcium (8.4-10.2) mg/dL Magnesium (1.6-2.3) mg/dL Total Bilirubin (0.2-1.3) mg/dL AST (14-36) U/L ALT (4-34) U/L Alkaline Phosphatase (38-126) U/L Total Protein (6.3-8.2) g/dL Albumin (3.5-5.0) g/dL Lipase (23-300) U/L Urine Color Colorless Urine Appearance Clear (Clear) Urine pH 7.0 (5.0-8.0) Ur Specific [place] 1.004 (1.001-1.035) Urine Protein Negative (Negative) Urine Glucose (UA) Negative (Negative) Urine Ketones 1+ H (Negative) Urine Blood Negative (Negative) Urine Nitrite Negative (Negative) Urine Bilirubin Negative (Negative) Urine Urobilinogen <2.0 (<2.0) mg/dL Ur Leukocyte Esterase Negative (Negative) Urine Opiates Screen Not Detected (NotDetected) Ur Oxycodone Screen Not Detected (NotDetected) Urine Methadone Screen Not Detected (NotDetected) Ur Barbiturates Screen Not Detected (NotDetected) U Tricyclic Antidepress Not Detected (NotDetected) Ur Phencyclidine Scrn Not Detected (NotDetected) Ur Amphetamines Screen Not Detected (NotDetected) U Methamphetamines Scrn Not Detected (NotDetected) U Benzodiazepines Scrn Detected H (NotDetected) Urine Cocaine Screen Not Detected (NotDetected) U Marijuana (THC) Screen Detected H (NotDetected) Serum Alcohol mg/dL Disposition Clinical Impression: Gastroenteritis Disposition: HOME SELF-CARE Condition: Stable Instructions (If sedation given, give patient instructions): Gastroenteritis (ED) Additional Instructions: Please return to the Emergency Department if symptoms worsen or any other concerns. Is patient prescribed a controlled substance at d/c from ED?: No Referrals: Sirisha Levin MD [Primary Care Provider] - 1-2 days Time of Disposition: 18:30
[2024-03-18 14:55] VITALS: RESP 16
[2024-03-18] MEDS: SODIUM CHLORIDE 0.9% 500 ML 500 ML IV STA (14:56)
[2024-03-18] MEDS: ONDANSETRON 4 MG/2 ML VIAL IVP STA (15:01)
[2024-03-18 15:06] LABS: Basophils % (A) 0 %; Eosinophils # (A) 0.1 k/uL (0-0.7); Eosinophils % (A) 1 %; HGB 14.4 gm/dL (11.4-16.0); Lymphocytes # (A) 0.9 k/uL (1.0-4.8); Lymphocytes % (A) 9 %; MCH 29.6 pg (25.0-35.0); MCHC 33.5 g/dL (31.0-37.0); MCV 88.4 fL (80.0-100.0); Mean Platelet Volume 6.5; Monocytes # (A) 0.3 k/uL (0-1.0); Monocytes % (A) 3 %; Neutrophils # (A) 8.3 k/uL (1.3-7.7); Neutrophils % (A) 85 %; Platelet Count 222 k/uL (150-450); RBC 4.87 m/uL (3.80-5.40); RDW 12.6 % (11.5-15.5); WBC 9.8 k/uL (3.8-10.6)
[2024-03-18 15:16] LABS: Anion Gap 8 mmol/L; Carbon Dioxide 25 mmol/L (22-30); Chloride 104 mmol/L (98-107); Glucose 94 mg/dL (74-99); Potassium 3.5 mmol/L (3.5-5.1); Sodium 137 mmol/L (137-145)
[2024-03-18 15:17] LABS: ALT 19 U/L (4-34); AST 28 U/L (14-36); African American GFR (CKD) >90 (>60 ml/min/1.73 sqM); Albumin 4.6 g/dL (3.5-5.0); Alcohol <10 mg/dL; Alkaline Phosphatase 51 U/L (38-126); Blood Urea Nitrogen 6 mg/dL (7-17); Calcium 9.5 mg/dL (8.4-10.2); Lipase 79 U/L (23-300); Magnesium 1.9 mg/dL (1.6-2.3); Non-African American GFR(CKD) >90 (>60 ml/min/1.73 sqM); Total Bilirubin 0.5 mg/dL (0.2-1.3); Total Protein 7.6 g/dL (6.3-8.2)
[2024-03-18 18:16] VITALS: BP 141/100; PULSE 86
[2024-03-18 18:24] LABS: Appearance,Urine Clear (Clear); Bilirubin,Urine Negative (Negative); Blood,Urine Negative (Negative); Color,Urine Colorless; Glucose,Urine (UA) Negative (Negative); Ketones,Urine 1+ (Negative); Leukocyte Esterase,Urine Negative (Negative); Nitrite,Urine Negative (Negative); Protein,Urine Negative (Negative); Specific Gravity,Urine 1.004 (1.001-1.035); Urobilinogen,Urine <2.0 mg/dL (<2.0)
[2024-03-18 18:48] LABS: Amphetamine Screen,Urine Not Detected (NotDetected); Barbiturate Screen,Urine Not Detected (NotDetected); Benzodiazepines Screen,Urine Detected (NotDetected); Cocaine Screen,Urine Not Detected (NotDetected); Methadone Screen, Urine Not Detected (NotDetected); Opiate Screen,Urine Not Detected (NotDetected); Oxycodone Screen, Urine Not Detected (NotDetected); Phencyclidine Screen,Urine Not Detected (NotDetected); Tricyclic Antidepressant,Urine Not Detected (NotDetected); Urn Cannabinoid Scrn Detected (NotDetected)
== END 2024-03-18 19:11 | disposition home or self-care (01) ==
LOC: EC 13:41
DX: K52.9 Noninfective gastroenteritis and colitis, unspecified (principal); F17.290 Nicotine dependence, other tobacco product, uncomplicated; Z88.1 Allergy status to other antibiotic agents; Z88.2 Allergy status to sulfonamides; Z88.8 Allergy status to other drugs, medicaments and biological substances
CPT/HCPCS: 36415; 80053; 83605; 83690; 83735; 85025; 81003; 80306; 99284; 96374; G0480; J2405; 80320

== ENCOUNTER → 2024-04-08 | Outpatient (CLI) | payer OTHER ==
[~2024-04-08] MED LIST: SODIUM CHLORIDE 0.9% 250 ML in EMPTY BAG 1 BAG IV PRN; SODIUM CHLORIDE 0.9% 500 ML 500 ML in EMPTY BAG 1 BAG IV PRN
[2024-04-08 09:21] VITALS: BP 116/87; PULSE 100; RESP 16; TEMP 98.1
[2024-04-08] MEDS: COSYNTROPIN 0.25 MG VIAL IVP NR (09:50)
== END ==
LOC: PROCWHC3 09:11
PROVIDERS: ATTEND Internal Medicine
DX: E27.40 Unspecified adrenocortical insufficiency (principal)
CPT/HCPCS: 82533; 82024; 96374; J0834; 36415

== ENCOUNTER → 2024-04-21 | Outpatient (CLI) | payer OTHER ==
[2024-04-22 19:59] LABS: Thyroid Stim Immun Quant <0.10 IU/L (<0.10)
== END | disposition home or self-care (01) ==
LOC: LABWHC1 11:22
PROVIDERS: ATTEND Internal Medicine
DX: E27.40 Unspecified adrenocortical insufficiency (principal); E16.2 Hypoglycemia, unspecified
CPT/HCPCS: 36415; 83036; 83835; 84445; 86376

== ENCOUNTER → 2024-07-07 | Outpatient (CLI) | payer OTHER ==
--- NOTE | 2024-07-07 13:11 | MM ---
Reason for Exam: Screening (asymptomatic). Last screening mammogram was performed 8 month(s) ago. Patient History: Menarche at age 13. First Full-Term at age 19. Risk Values: Claudia 5 year model risk: 1.0%. NCI Lifetime model risk: 5.6%. Prior Study Comparison: 11/25/2006 Bilateral Screening Mammogram, [facility]. 03/01/2008 Bilateral Screening Mammogram, [facility]. 06/07/2010 Bilateral Screening Mammogram, [facility]. Tissue Density: The breasts are heterogeneously dense, which may obscure small masses. Findings: Analyzed By CAD. There is no suspicious group of microcalcifications or new suspicious mass in either breast. Overall Assessment: Negative, BI-RAD 1 Management: Screening Mammogram of both breasts in 1 year. . Patient should continue monthly self-breast exams. A clinical breast exam by your physician is recommended on an annual basis. This exam should not preclude additional follow-up of suspicious palpable abnormalities. Note on Claudia scores and lifetime risk: 1. A Claudia score greater than 3% is considered moderate risk. If this is the case, consider specialist referral to assess eligibility for a risk reducing agent. 2. If overall lifetime risk for the development of breast cancer is 20% or higher, the patient may qualify for future screening with alternating mammogram and breast MRI. [facility], , 07/07/2024 1:08 PM. Electronically signed and approved by: Yariel Palma M.D.
--- NOTE | 2024-07-07 13:32 | CT ---
EXAMINATION TYPE: CT chest wo con DATE OF EXAM: 07/07/2024 COMPARISON: None CLINICAL INDICATION: Female, 59 years old with history of R91.1 PULMONARY NODULE; PHH, Lung nodule TECHNIQUE: CT scan of the thorax is performed without IV contrast. CT DLP: 117.[address] CTDI: mGy Automated exposure control for dose reduction was used. FINDINGS: There are mild emphysematous changes. There are multiple pulmonary nodules. The index nodule is a 8.5 mm nodule in the juxtapleural fissura l nodule in the right middle lobe. There are additional sub-4 mm nodules in both lungs. There is no airspace consolidation. There is no abnormal interstitial density. There is no pleural effusion or pneumothorax. The great vessels of the thorax and heart are normal in size. There is no mediastinal, hilar or axill lolly adenopathy. Limited scanning through the upper abdomen reveals a 14 mm hypodensity in the left lobe of liver whic h most likely represents a cyst. There are no focal osseous lesions. IMPRESSION: 1. Mild emphysematous changes. 2. Multiple pulmonary nodules the largest of which is a 8.5 mm juxtapleural visual nodule in the righ t middle lobe. If this is a high-risk patient, routine screening at yearly intervals is recommended. 3. No acute cardiopulmonary disease [facility], Workstation: [place] 07/07/2024 1:30 PM
== END | disposition home or self-care (01) ==
LOC: RADMAMWWP 12:09
PROVIDERS: ATTEND Family Medicine
DX: Z12.31 Encounter for screening mammogram for malignant neoplasm of breast (principal); R92.333 Mammographic heterogeneous density, bilateral breasts; J43.9 Emphysema, unspecified; R91.8 Other nonspecific abnormal finding of lung field
CPT/HCPCS: 71250; 77063; 77067

== ENCOUNTER → 2024-07-08 | Outpatient (CLI) | payer OTHER ==
[2024-07-08 15:40] LABS: Chol/HDL Ratio 3.33 Ratio; LDL Cholesterol,Calculated 107.6 mg/dL (0.0-131.0); VLDL Calculation 13.42 mg/dL (5.00-40.00)
== END | disposition home or self-care (01) ==
LOC: LABWHC1 09:58
PROVIDERS: ATTEND Family Medicine
DX: Z13.220 Encounter for screening for lipoid disorders (principal)
CPT/HCPCS: 36415; 80061